=== PATIENT | female | born 1975 | race Caucasian/White ===

== ENCOUNTER → 2018-06-07 | Outpatient (CLI) | payer MEDICARE, OTHER | END | disposition home or self-care (01) | LOC: RADECHMAIN 11:50 | PROVIDERS: ATTEND Psychiatry & Neurology Neurology | DX: I49.1 Atrial premature depolarization (principal); I49.3 Ventricular premature depolarization; R00.0 Tachycardia, unspecified | CPT/HCPCS: 93270; 93271 ==

== ENCOUNTER 2019-05-10 17:55 | Observation (INO) | payer MEDICARE ==
--- NOTE | 2019-05-10 18:06 | ED ---
Abdominal Pain HPI - General Chief Complaint: Abdominal Pain Stated Complaint: Blood transfusion Time Seen by Provider: 05/10/19 18:03 Source: patient, RN notes reviewed, old records reviewed Mode of arrival: wheelchair Limitations: no limitations - History of Present Illness Initial Comments: This is a 43-year-old female presenting today for evaluation of abnormal outpatient lab test. Patient states she has not been feeling Well lately but denying adequate bleeding from anywhere no heavy periods no blood in her stool no vomiting of blood. Eating and drinking appropriately she has a little bit of weight loss lately. With intentional weight loss MD Complaint: other (Weakness with low hemoglobin) -: unknown Radiation: none Severity scale (1-10): 0 Consistency: constant Improves With: nothing Worsens With: nothing Associated Symptoms: other - Related Data Home Medications Medication Instructions Recorded Confirmed Gabapentin [Neurontin] 3,200 mg PO HS 07/31/16 05/10/19 Ibuprofen [Motrin] 800 mg PO HS PRN 07/31/16 05/10/19 OXcarbazepine [Trileptal] 600 mg PO HS 07/31/16 05/10/19 QUEtiapine FUMARATE 100 mg PO HS 07/31/16 05/10/19 Topiramate [Topamax] 100 mg PO HS 05/10/19 05/10/19 Venlafaxine HCl [Effexor] 150 mg PO HS 05/10/19 05/10/19 Allergies Allergy/AdvReac Type Severity Reaction Status Date / Time latex Allergy Unknown Rash/Hives Verified 05/10/19 18:28 Sulfa (Sulfonamide Allergy Unknown Unknown Verified 05/10/19 18:28 Antibiotics) Review of Systems ROS Statement: Those systems with pertinent positive or pertinent negative responses have been documented in the HPI. ROS Other: All systems not noted in ROS Statement are negative. Past Medical History Past Medical History: Seizure Disorder Additional Past Medical History / Comment(s): STATES SEIZURES HARD TO DETECT-SHE STARES. , HX OF FACIAL INJURIES FROM H[place]CHE[place]., ANEMIA. History of Any Multi-Drug Resistant Organisms: None Reported Past Surgical History: Appendectomy, Section, Cholecystectomy Additional Past Surgical History / Comment(s): FACIAL SURGERIES. Past Anesthesia/Blood Transfusion Reactions: No Reported Reaction, Motion Sickn ess Past Psychological History: Depression Smoking Status: Never smoker Past Alcohol Use History: None Reported Past Drug Use History: None Reported - Past Family History Mother Family Medical History: No Reported History General Exam Limitations: no limitations General appearance: alert, in no apparent distress Head exam: Present: atraumatic, normocephalic, normal inspection Eye exam: Present: normal appearance, PERRL, EOMI. Absent: scleral icterus, conjunctival injection, periorbital swelling ENT exam: Present: normal exam, mucous membranes moist Neck exam: Present: normal inspection. Absent: tenderness, meningismus, lymphadenopathy Respiratory exam: Present: normal lung sounds bilaterally. Absent: respiratory distress, wheezes, rales, rhonchi, stridor Cardiovascular Exam: Present: regular rate, normal rhythm, normal heart sounds. Absent: systolic murmur, diastolic murmur, rubs, gallop, clicks GI/Abdominal exam: Present: soft, normal bowel sounds. Absent: distended, tenderness, guarding, rebound, rigid Extremities exam: Present: normal inspection, full ROM, normal capillary refill. Absent: tenderness, pedal edema, joint swelling, calf tenderness Back exam: Present: normal inspection Neurological exam: Present: alert, oriented X3, CN II-XII intact Psychiatric exam: Present: normal affect, normal mood Skin exam: Present: warm, dry, intact, normal color. Absent: rash Course Vital Signs 05/10/19 05/10/19 17:56 19:37 Temperature 97.9 F Pulse Rate 89 70 Respiratory 20 18 Rate Blood Pressure 135/64 120/68 O2 Sat by Pulse 100 100 Oximetry - Reevaluation(s) Reevaluation #1: 05/10/19 19:09 Medical records reviewed - Consultations Consultation #1: spoke.w Dr. Vizcaino is a ok for admission Medical Decision Making - Medical Decision Making 43 female here to ER symptomatically anemia significant short of breath and near syncopal event special fibrillation. We'll admit for continued monitoring of anemia, to look like chronic anemia from iron deficiency as well as her lab test but symptoms are more acute - Lab Data Result diagrams: 05/10/19 18:34 05/10/19 18:34 Lab Results 05/10/19 05/10/19 05/10/19 Range/Units 18:34 18:34 18:34 WBC 4.9 (3.8-10.6) k/uL RBC 4.46 (3.80-5.40) m/uL Hgb 7.0 L (11.4-16.0) gm/dL Hct 26.1 L (34.0-46.0) % MCV 58.4 L (80.0-100.0) fL MCH 15.8 L (25.0-35.0) pg MCHC 27.0 L (31.0-37.0) g/dL RDW 18.6 H (11.5-15.5) % Plt Count 389 (150-450) k/uL Neutrophils % 68 % Lymphocytes % 25 % Monocytes % 5 % Eosinophils % 0 % Basophils % 0 % Neutrophils # 3.3 (1.3-7.7) k/uL Lymphocytes # 1.2 (1.0-4.8) k/uL Monocytes # 0.3 (0-1.0) k/uL Eosinophils # 0.0 (0-0.7) k/uL Basophils # 0.0 (0-0.2) k/uL Hypochromasia Marked Poikilocytosis Moderate Anisocytosis Slight Microcytosis Marked PT 9.8 (9.0-12.0) sec INR 0.9 (<1.2) APTT 25.9 (22.0-30.0) sec Sodium 141 (137-145) mmol/L Potassium 4.3 (3.5-5.1) mmol/L Chloride 108 H (98-107) mmol/L Carbon Dioxide 23 (22-30) mmol/L Anion Gap 10 mmol/L BUN 9 (7-17) mg/dL Creatinine 0.53 (0.52-1.04) mg/dL Est GFR (CKD-EPI)AfAm >90 (>60 ml/min/1.73 sqM) Est GFR (CKD-EPI)NonAf >90 (>60 ml/min/1.73 sqM) Glucose 111 H (74-99) mg/dL Calcium 9.5 (8.4-10.2) mg/dL Magnesium 2.1 (1.6-2.3) mg/dL Total Bilirubin 0.6 (0.2-1.3) mg/dL AST 27 (14-36) U/L ALT 20 (9-52) U/L Alkaline Phosphatase 193 H (38-126) U/L Creatine Kinase 28 L (30-135) U/L Troponin I (0.000-0.034) ng/mL Total Protein 7.8 (6.3-8.2) g/dL Albumin 4.7 (3.5-5.0) g/dL Lipase 66 (23-300) U/L Blood Type Blood Type Recheck Bld Type Recheck Status Antibody Screen Spec Expiration Date 05/10/19 05/10/19 Range/Units 18:34 18:34 WBC (3.8-10.6) k/uL RBC (3.80-5.40) m/uL Hgb (11.4-16.0) gm/dL Hct (34.0-46.0) % MCV (80.0-100.0) fL MCH (25.0-35.0) pg MCHC (31.0-37.0) g/dL RDW (11.5-15.5) % Plt Count (150-450) k/uL Neutrophils % % Lymphocytes % % Monocytes % % Eosinophils % % Basophils % % Neutrophils # (1.3-7.7) k/uL Lymphocytes # (1.0-4.8) k/uL Monocytes # (0-1.0) k/uL Eosinophils # (0-0.7) k/uL Basophils # (0-0.2) k/uL Hypochromasia Poikilocytosis Anisocytosis Microcytosis PT (9.0-12.0) sec INR (<1.2) APTT (22.0-30.0) sec Sodium (137-145) mmol/L Potassium (3.5-5.1) mmol/L Chloride (98-107) mmol/L Carbon Dioxide (22-30) mmol/L Anion Gap mmol/L BUN (7-17) mg/dL Creatinine (0.52-1.04) mg/dL Est GFR (CKD-EPI)AfAm (>60 ml/min/1.73 sqM) Est GFR (CKD-EPI)NonAf (>60 ml/min/1.73 sqM) Glucose (74-99) mg/dL Calcium (8.4-10.2) mg/dL Magnesium (1.6-2.3) mg/dL Total Bilirubin (0.2-1.3) mg/dL AST (14-36) U/L ALT (9-52) U/L Alkaline Phosphatase (38-126) U/L Creatine Kinase (30-135) U/L Troponin I <0.012 (0.000-0.034) ng/mL Total Protein (6.3-8.2) g/dL Albumin (3.5-5.0) g/dL Lipase (23-300) U/L Blood Type B Positive Blood Type Recheck B Pos Bld Type Recheck Status No Antibody Screen NEGATIVE Spec Expiration Date 05/13/2019 - 2334 Disposition Clinical Impression: Anemia Disposition: ADMITTED IP TO THIS HOSP Condition: Good Is patient prescribed a controlled substance at d/c from ED?: No Referrals: Silvio Chong MD [Primary Care Provider] - 1-2 days
[2019-05-10] MEDS ORDERED: ONDANSETRON 4 MG/2 ML VIAL IVP STA (18:20)
[2019-05-10] MEDS ORDERED: SODIUM CHLORIDE 0.9% 1,000 ML IV STA (18:20)
[2019-05-10] MEDS ORDERED: PANTOPRAZOLE 40 MG/10 ML VIAL IVP STA (18:20)
[2019-05-10 18:44] LABS: Anisocytosis Slight; Basophils % (A) 0 %; Eosinophils % (A) 0 %; HCT 26.1 % (34.0-46.0); Hypochromasia Marked; Lymphocytes # (A) 1.2 k/uL (1.0-4.8); Lymphocytes % (A) 25 %; MCH 15.8 pg (25.0-35.0); MCV 58.4 fL (80.0-100.0); Mean Platelet Volume 7.6; Microcytosis Marked; Monocytes # (A) 0.3 k/uL (0-1.0); Monocytes % (A) 5 %; Neutrophils # (A) 3.3 k/uL (1.3-7.7); Neutrophils % (A) 68 %; Platelet Count 389 k/uL (150-450); Poikilocytosis Moderate; RBC 4.46 m/uL (3.80-5.40); RDW 18.6 % (11.5-15.5); WBC 4.9 k/uL (3.8-10.6)
[2019-05-10 18:52] LABS: ALT 20 U/L (9-52); AST 27 U/L (14-36); African American GFR (CKD) >90 (>60 ml/min/1.73 sqM); Albumin 4.7 g/dL (3.5-5.0); Alkaline Phosphatase 193 U/L (38-126); Anion Gap 10 mmol/L; Blood Urea Nitrogen 9 mg/dL (7-17); Calcium 9.5 mg/dL (8.4-10.2); Carbon Dioxide 23 mmol/L (22-30); Chloride 108 mmol/L (98-107); Creatine Kinase 28 U/L (30-135); Glucose 111 mg/dL (74-99); Magnesium 2.1 mg/dL (1.6-2.3); Non-African American GFR(CKD) >90 (>60 ml/min/1.73 sqM); Potassium 4.3 mmol/L (3.5-5.1); Sodium 141 mmol/L (137-145); Total Bilirubin 0.6 mg/dL (0.2-1.3); Total Protein 7.8 g/dL (6.3-8.2)
[2019-05-10 18:56] LABS: INR 0.9 (<1.2); Partial Thromboplastin Time 25.9 sec (22.0-30.0); Prothrombin Time 9.8 sec (9.0-12.0)
[2019-05-11 02:22] VITALS: BMI 33.0
[2019-05-11 02:52] LABS: % Iron Saturation 2.28 (12.00-45.00); Ferritin 8.4 ng/mL (10.0-291.0)
[2019-05-11 12:06] LABS: Reticulocyte % 2.2 % (0.5-2.0)
--- NOTE | 2019-05-11 12:32 | P.HPIM ---
History of Present Illness H&P Date: 05/11/19 Chief Complaint: anemia This is a 43-year-old female patient of Dr. 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 Patient also follows with Dr. Cavazos on a regular basis and receives cortisone shots. Dr. Cavazos apparently did lab work that found anemia and patient was sent into [facility] emergency [place] for evaluation. She does state that she has had some shortness of breath and fatigue and also feel palpitations when she ambulates. She denies any dizziness or lightheadedness. She does complain of ice cravings. She denies any ancestry and no family history of anemia. Regarding menses, patient states that she normally has 3-4 day. That's irregular and without excessive bleeding Patient had a colonoscopy with Dr. Smith Jul 2016 that found internal hemorrhoids external skin tags. She also underwent EGD with Dr. Brothers that revealed mild gastritis. Pathology report found no malignancy and only chronic mild esophagitis. Patient states that she has been on iron tablets ordered by Dr. Chu that did not improve her anemia. This summer she did have a n iron transfusion done at [facility] which did make her feel better. Regarding Motrin, she states she only takes it very rarely. She denies having any abdominal pain, noticeable blood in her stools or tarry stools. Patient came into [facility] emergency center for evaluation. Hemoglobin 7.0, MCV 58.4, platelet count 389, rechecked count 2.2, which was within normal limits, blood sugar 111, BUN 90 creatinine 0.53. Magnesium 2.1. TIBC 439, iron saturation 2.28, ferritin 8.4, alkaline phosphatase 193, lipase 66. Patient was admitted to the [facility] floor and consult with GI. Patient has been seen by GI with plan for upper and lower endoscopy for tomorrow afternoon. Review of Systems Constitutional: Reports fatigue, Reports weakness, Denies chills, Denies fever, Denies poor appetite, Denies weight loss Eyes: denies blurred vision, denies pain Ears, nose, mouth and throat: Denies dysphagia, Denies nasal congestion, Denies nasal discharge, Denies vertigo Cardiovascular: Reports dyspnea on exertion, Reports palpitations, Denies chest pain, Denies shortness of breath, Denies syncope Respiratory: Denies congestion, Denies cough, Denies cough with sputum, Denies dyspnea, Denies excessive sputum, Denies hemoptysis, Denies home oxygen, Denies wheezing Gastrointestinal: Denies abdominal pain, Denies diarrhea, Denies hematochezia, Denies loss of appetite, Denies melena, Denies nausea, Denies vomiting Genitourinary: Denies dysuria, Denies hematuria Menstruation: Reports menses 1-7 days, Reports period light, Denies amenorrhea Musculoskeletal: Denies frequent falls, Denies gait dysfunction, Denies muscle weakness, Denies myalgias Integumentary: Denies pruritus, Denies rash Neurological: Denies numbness, Denies weakness Psychiatric: Denies anxiety, Denies depression Endocrine: Denies fatigue, Denies weight change Past Medical History Past Medical History: Seizure Disorder Additional Past Medical History / Comment(s): STATES SEIZURES HARD TO DETECT-SHE STARES. , HX OF FACIAL INJURIES FROM [place]., ANEMIA. History of Any Multi-Drug Resistant Organisms: None Reported Past Surgical History: Appendectomy, Section, Cholecystectomy Additional Past Surgical History / Comment(s): FACIAL SURGERIES. Past Anesthesia/Blood Transfusion Reactions: No Reported Reaction, Motion Sickness Past Psychological History: Anxiety, Depression Smoking Status: Never smoker Past Alcohol Use History: None Reported Additional Past Alcohol Use History / Comment(s): Patient is a lifelong nonsmoker, no illicit drug use, she has occasionally drink alcohol in the past but none at the past 9 years since closed head injury. Past Drug Use History: None Reported - Past Family History Mother Family Medical History: No Reported History Additional Family Medical History / Comment(s): Mother is alive at age 67 with no major medical problems. Father Additional Family Medical History / Comment(s): Father is alive at age 67 with no major medical problems. Brother(s) Additional Family Medical History / Comment(s): Patient has 1 brother and 1 sister with no major medical problems. Patient has 2 sons and 2 daughters with no major medical problems. Medications and Allergies Home Medications Medication Instructions Recorded Confirmed Type Gabapentin [Neurontin] 3,200 mg PO HS 07/31/16 05/11/19 History Ibuprofen [Motrin] 800 mg PO HS PRN 07/31/16 05/11/19 History QUEtiapine FUMARATE 100 mg PO HS 07/31/16 05/11/19 History Topiramate [Topamax] 100 mg PO HS 05/10/19 05/11/19 History OXcarbazepine [Trileptal] 300 mg PO HS 05/11/19 05/11/19 History Venlafaxine HCl [Effexor XR] 150 mg PO HS 05/11/19 05/11/19 History Allergies Allergy/AdvReac Type Severity Reaction Status Date / Time latex Allergy Unknown Rash/Hives Verified 05/10/19 18:28 Sulfa (Sulfonamide Allergy Unknown Unknown Verified 05/10/19 18:28 Antibiotics) Physical Exam Vitals: Vital Signs Temp Pulse Pulse Resp BP BP Pulse Ox 05/11/19 08:38 16 05/11/19 07:56 98.3 F 68 16 100/61 98 05/11/19 04:50 98.7 F 69 16 97/60 97 05/11/19 00:00 18 05/10/19 21:47 98.1 F 84 18 133/88 100 05/10/19 20:56 98.5 F 71 16 118/77 98 05/10/19 19:37 70 18 120/68 100 05/10/19 17:56 97.9 F 89 20 135/64 100 Intake and Output 05/10/19 05/11/19 05/11/19 22:59 06:59 14:59 Intake Total 1120 1040 Balance 1120 1040 Intake: Intake, IV Titration 400 800 Amount Sodium Chloride 0.9% 1, 400 800 000 ml @ 100 mls/hr IV . Q10H STA Rx#:[id number] Oral 720 240 Other: Voiding Method Toilet # Voids 1 1 Weight 101.605 kg Gen: This is an obese 43-year-old female. Patient is resting in bed and appears to be comfortable and in no acute distress. HEENT: Head is atraumatic, normocephalic. Pupils equal, round. Sclerae is anicteric. NECK: Supple. No JVD. No lymphadenopathy. No thyromegaly. LUNGS: Clear to auscultation. No wheezes or rhonchi. No intercostal retractions. HEART: Regular rate and rhythm. No murmur. ABDOMEN: Soft. Bowel sounds are present. No masses. No tenderness. EXTREMITIES: No pedal edema. No calf tenderness. Dorsalis pedis +2 bilaterally. NEUROLOGICAL: Patient is awake, alert and oriented x3. Cranial nerves 2 through 12 are grossly intact. Results CBC & Chem 7: 05/10/19 18:34 05/10/19 18:34 Labs: Abnormal Lab Results - Last 24 Hours (Table) 05/10/19 05/10/19 05/10/19 Range/Units 18:34 18:34 18:34 Hgb 7.0 L (11.4-16.0) gm/dL Hct 26.1 L (34.0-46.0) % MCV 58.4 L (80.0-100.0) fL MCH 15.8 L (25.0-35.0) pg MCHC 27.0 L (31.0-37.0) g/dL RDW 18.6 H (11.5-15.5) % Chloride 108 H (98-107) mmol/L Glucose 111 H (74-99) mg/dL Iron 10 L (50-170) ug/dL % Saturation 2.28 L (12.00-45.00) Ferritin 8.4 L (10.0-291.0) ng/mL Alkaline Phosphatase 193 H (38-126) U/L Creatine Kinase 28 L (30-135) U/L Thrombosis Risk Factor Assmnt - DVT/VTE Prophylaxis DVT/VTE Prophylaxis: Mechanical Prophylaxis ordered - Choose All That Apply Any of the Below Risk Factors Present?: Yes Each Factor Represents 1 point: Age 41-60 years Other Risk Factors: No Other congenital or acquired thrombophilia - If yes, enter type in comment: No Thrombosis Risk Factor Assessment Total Risk Factor Score: 1 Thrombosis Risk Factor Assessment Level: Low Risk Assessment and Plan Plan: 1. Anemia, iron deficiency, chronic. GI consult appreciated. Patient is s cheduled for EGD and colonoscopy tomorrow afternoon. 2. History of closed head injury and intracranial bleed, stable. 3. 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 Continue Trileptal 300 mg at bedtime, gabapentin 3200 mg at bedtime. 4. Trigeminal neuralgia. Continue Topamax 100 mg at bedtime. 5. Recurrent depression. Continue Seroquel 100 mg at bedtime, Effexor 150 mg at bedtime and gabapentin. 6. GI prophylaxis. Protonix. 7. DVT prophylaxis. SCDs and COREY hose. Patient will be admitted to the hospital for a minimum of 2 night stay. Discharge plan: Return home Impression and plan of care have been directed as dictated by the signing physician. Jesika Devlin nurse practitioner acting as scribe for signing physician.
[2019-05-11] MEDS ORDERED: PEG 3350-NA SULF,BICARB,CL/KCL 4,000 ML BOTTLE PO ONE (19:00)
--- NOTE | 2019-05-11 19:33 | CONS ---
CONSULTATION DATE OF DICTATION: 05/11/2019 REASON FOR CONSULTATION: Iron deficiency anemia. HISTORY OF PRESENT ILLNESS: The patient is a 43-year-old pleasant white female who was admitted to the hospital with severe symptomatic anemia and a hemoglobin of 7 g/dL. The patient has history of a closed-head injury about 8 years ago and follows with Dr. Cavazos. She went to see him yesterday and she was not looking good. She was advised to have outpatient labs. Hemoglobin was noted to be 7 and she was advised to go to the emergency room and subsequently was admitted to the hospital for further evaluation. The patient denies any active GI bleed. She has been taking Motrin regularly for chronic headaches for the last few months. The patient states that she was diagnosed with anemia about 2 years ago and she underwent an upper endoscopy by Dr. Brothers that showed some gastritis and a colonoscopy by Dr. Vivienne Smith and was noted to have small internal hemorrhoids in July of 2016. She denies any abdominal pain. No nausea, vomiting. No rectal bleeding or melena. PAST MEDICAL HISTORY: Her past medical history is significant for closed-head injury, seizure disorder. PAST SURGICAL HISTORY: 1. Appendectomy. 2. . 3. Cholecystectomy. MEDICATIONS AT HOME: 1. Neurontin. 2. Motrin. 3. Topamax. 4. Trileptal. 5. Effexor. ALLERGIES: 1. SULFA. 2. LATEX. SOCIAL HISTORY: No smoking. No alcohol use. FAMILY HISTORY: Father has no medical problems. Mother no medical problems. Brother and sister are healthy. REVIEW OF SYSTEMS: CARDIOPULMONARY: No chest pain or shortness of breath. GENITOURINARY: No dysuria or hematuria. MUSCULOSKELETAL: Unremarkable. SKIN: Unremarkable. ENDOCRINE: Unremarkable. PSYCHIATRIC: Unremarkable. NEUROLOGY: Unremarkable. ENT/VISION: Unremarkable. CONSTITUTIONAL: No recent weight loss. No fever, chills, night sweats. PHYSICAL EXAMINATION: Blood pressure is 97/60, pulse rate 69, temperature 98.7. HEENT examination unremarkable. Conjunctivae pink. Sclerae anicteric. Oral cavity no lesions. NECK: No JVD or lymph node enlargement. CHEST: Clear to auscultation. HEART: Regular rate and rhythm. ABDOMEN: Soft. Bowel sounds are positive. No organomegaly. EXTREMITIES: No pedal edema. SKIN: No rashes. NEUROLOGIC: Alert and oriented x3. No focal deficits. LABS: Labs done at the time of admission to the hospital showed WBC 4.9, hemoglobin 7, platelets 389. PT and INR within normal limits. Iron 10, TIBC 439. Iron saturation 2.28, ferritin 8.4. INR is normal. IMPRESSION: Severe microcytic hyperchromic anemia with iron deficiency, most likely related to occult gastrointestinal blood loss. Patient denies any GI symptoms. She has been taking Motrin on and off for the last few months. She denies any heavy menstrual cycles. She did have an EGD, colonoscopy in July of 2016 that was unremarkable. RECOMMENDATIONS: I had a lengthy discussion with the patient regarding workup of iron deficiency anemia. Since she has severe anemia, I recommended we will proceed with an EGD and colonoscopy tomorrow and if it is negative, will consider a small bowel capsule endoscopy, as she has recurrent iron deficiency anemia. In the meantime, will follow CBC on a daily basis. She was advised to avoid NSAIDs. Further recommendations will follow based on the endoscopy results tomorrow. Thank you for this consultation. MMODL / KIMBERN: [id number] /
[2019-05-11] MEDS: VENLAFAXINE HCL ER 150 MG CAP PO SCH (20:25)
[2019-05-11] MEDS: TOPAMAX PO SCH (20:25)
[2019-05-11] MEDS: OXcarbazepine 300 MG TAB PO SCH (20:25)
[2019-05-11] MEDS: QUEtiapine 100 MG TAB PO SCH (20:25)
[2019-05-11] MEDS: GABAPENTIN 400 MG CAP PO SCH (20:26)
[2019-05-12 07:50] LABS: Anisocytosis Slight; HCT 22.7 % (34.0-46.0); Hypochromasia Marked; MCH 16.2 pg (25.0-35.0); MCHC 26.8 g/dL (31.0-37.0); MCV 60.5 fL (80.0-100.0); Mean Platelet Volume 6.4; Microcytosis Marked; Platelet Count 345 k/uL (150-450); Poikilocytosis Slight; RBC 3.76 m/uL (3.80-5.40); RDW 18.9 % (11.5-15.5); WBC 4.2 k/uL (3.8-10.6)
[2019-05-12 07:52] LABS: HGB 6.1 gm/dL (11.4-16.0)
[2019-05-12] MEDS ORDERED: FUROSEMIDE 10 MG/ML 2 ML VIAL IV PRN (08:09)
[2019-05-12] MEDS ORDERED: PANTOPRAZOLE 40 MG/10 ML VIAL IVP SCH (09:00)
[2019-05-12 13:22] LABS: Albumin 3.53 g/dL (3.80-4.90); Gamma Globulin 0.68 g/dL (0.70-1.50)
--- NOTE | 2019-05-12 13:49 | P.PN ---
Subjective Progress Note Date: 05/12/19 This is a 43-year-old female patient of Dr. 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 Patient also follows with Dr. Cavazos on a regular basis and receives cortisone shots. Dr. Cavazos apparently did lab work that found anemia and patient was sent into [facility] emergency center for evaluation. She does state that she has had some shortness of breath and fatigue and also feel palpitations when she ambulates. She denies any dizziness or lightheadedness. She does complain of ice cravings. She denies any ancestry and no family history of anemia. Regarding menses, patient states that she normally has 3-4 day. That's irregular and without excessive bleeding Patient had a colonoscopy with Dr. Smith Jul 2016 that found internal hemorrhoids external skin tags. She also underwent EGD with Dr. Brothers that revealed mild gastritis. Pathology report found no malignancy and only chronic mild esophagitis. Patient states that she has been on iron tablets ordered by Dr. Chu that did not improve her anemia. This summer she did have an iron transfusion done at [facility] which did make her feel better. Regarding Motrin, she states she only takes it very rarely. She denies having any abdominal pain, noticeable blood in her stools or tarry stools. Patient came into [facility] emergency center for evaluation. Hemoglobin 7.0, MCV 58.4, platelet count 389, rechecked count 2.2, which was within normal limits, blood sugar 111, BUN 90 creatinine 0.53. Magnesium 2.1. TIBC 439, iron saturation 2.28, ferritin 8.4, alkaline phosphatase 193, lipase 66. [facility]. Patient has been seen by GI with plan for upper and lower endoscopy for tomorrow afternoon. 05/12: Patient had a drop in hemoglobin to 6.1 and is ordered for 1 unit packed RBC transfusion today, followed by Lasix 20 mg IV. Patient continues to deny any abdominal pain. No nausea or vomiting. She is undergoing prep for colonoscopy and as of yet has not had a bowel movement. She is scheduled for soapsuds enema prior to procedures. Patient also denies any lightheadedness or dizziness. She has walked in the hallway around the large [place] and does feel her heart pounding. Patient has been afebrile, heart rate 69, blood pressure 121/66, pulse ox 100% on room air. Review of Systems Constitutional: Reports fatigue, Reports weakness, Denies chills, Denies fever, Denies poor appetite, Denies weight loss Ears, nose, mouth and throat: Denies dysphagia, Denies nasal congestion, Denies nasal discharge, Denies vertigo Cardiovascular: Reports dyspnea on exertion, Reports palpitations, Denies chest pain, Denies shortness of breath, Denies syncope Respiratory: Denies congestion, Denies cough, Denies cough with sputum, Denies dyspnea, Denies excessive sputum, Denies hemoptysis, Denies home oxygen, Denies wheezing Gastrointestinal: Denies abdominal pain, Denies diarrhea, Denies hematochezia, Denies loss of appetite, Denies melena, Denies nausea, Denies vomiting Genitourinary: Denies dysuria, Denies hematuria Menstruation: Reports menses 1-7 days, Reports period light, Denies amenorrhea Musculoskeletal: Denies frequent falls, Denies gait dysfunction, Denies muscle weakness, Denies myalgias Integumentary: Denies pruritus, Denies rash Neurological: Denies numbness, Denies weakness Psychiatric: Denies anxiety, Denies depression Endocrine: Denies fatigue, Denies weight change Objective - Vital Signs Vital signs: Vital Signs Temp 98.1 F 05/12/19 12:32 Pulse 69 05/12/19 12:32 Resp 16 05/12/19 12:32 BP 121/66 05/12/19 12:32 Pulse Ox 100 05/12/19 12:32 Intake & Output 05/11/19 05/12/19 05/12/19 18:59 06:59 18:59 Intake Total 1300 3760 0 Balance 1300 3760 0 Intake: Intake, IV Titration 800 400 Amount Sodium Chloride 0.9% 1, 800 400 000 ml @ 100 mls/hr IV . Q10H STA Rx#:[id number] Oral 500 3360 Blood Product 0 Rc As-1 Unit 0 [id number] Other: Voiding Method Toilet Toilet Toilet # Voids 2 3 # Bowel Movements 0 - Exam Gen: This is an obese 43-year-old female. Patient is resting in bed and appears to be comfortable and in no acute distress. Mother is at bedside. HEENT: Head is atraumatic, normocephalic. Pupils equal, round. Sclerae is anicteric. NECK: Supple. No JVD. No lymphadenopathy. No thyromegaly. LUNGS: Clear to auscultation. No wheezes or rhonchi. No intercostal retractions. HEART: Regular rate and rhythm. No murmur. ABDOMEN: Soft with mild abdominal distention. Bowel sounds are present. No masses. No tenderness. EXTREMITIES: No pedal edema. No calf tenderness. Dorsalis pedis +2 bilaterally. NEUROLOGICAL: Patient is awake, alert and oriented x3. Cranial nerves 2 through 12 are grossly intact. - Labs CBC & Chem 7: 05/12/19 07:02 05/10/19 18:34 Labs: Abnormal Lab Results - Last 24 Hours (Table) 05/10/19 05/11/19 05/12/19 Range/Units 18:34 11:20 07:02 RBC 3.76 L (3.80-5.40) m/uL Hgb 6.1 L* (11.4-16.0) gm/dL Hct 22.7 L (34.0-46.0) % MCV 60.5 L (80.0-100.0) fL MCH 16.2 L (25.0-35.0) pg MCHC 26.8 L (31.0-37.0) g/dL RDW 18.9 H (11.5-15.5) % Total Protein (PEP) 6.0 L (6.2-8.2) g/dL Albumin (PEP) 3.53 L (3.80-4.90) g/dL Gamma Globulins 0.68 L (0.70-1.50) g/dL Crossmatch See Detail Assessment and Plan Plan: 1. Anemia, iron deficiency, acute on chronic blood loss. GI consult appreciated. Patient is scheduled for EGD and colonoscopy this afternoon. Transfuse 1 unit of packed RBCs. CBC every 8 hours 1 day. 2. History of closed head injury and intracranial bleed, stable. 3. 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 Continue Trileptal 300 mg at bedtime, gabapentin 3200 mg at bedtime. 4. Trigeminal neuralgia. Continue Topamax 100 mg at bedtime. 5. Recurrent depression. Continue Seroquel 100 mg at bedtime, Effexor 150 mg at bedtime and gabapentin. 6. GI prophylaxis. Protonix. 7. DVT prophylaxis. SCDs and COREY suero. Discharge plan: Return home Impression and plan of care have been directed as dictated by the signing physician. Jesika Devlin nurse practitioner acting as scribe for signing physician.
[2019-05-12] MEDS ORDERED: MAGNESIUM CITRATE 296 ML BOTTLE PO ONE (17:00)
[2019-05-12 18:55] LABS: Anisocytosis Moderate; HCT 26.8 % (34.0-46.0); Hypochromasia Marked; MCH 17.7 pg (25.0-35.0); MCHC 28.4 g/dL (31.0-37.0); MCV 62.4 fL (80.0-100.0); Mean Platelet Volume 6.8; Microcytosis Marked; Platelet Count 319 k/uL (150-450); Poikilocytosis Marked; RDW 21.1 % (11.5-15.5)
[2019-05-12 19:05] LABS: HGB 7.6 gm/dL (11.4-16.0)
--- NOTE | 2019-05-12 19:55 | PN ---
PROGRESS NOTE DATE OF DICTATION: 05/12/2019 Patient is a 43-year-old pleasant white female admitted to the hospital with severe symptomatic anemia and hemoglobin of 6.7, requiring blood transfusion. She denies any GI symptoms. She was scheduled for an EGD and colonoscopy today. However, her prep was incomplete and hence the procedure was canceled. She denies any new symptoms. PHYSICAL EXAMINATION: She appears comfortable. No apparent distress. VITAL SIGNS: Stable. Blood pressure 115/64, pulse rate 85, temperature 98. HEENT examination unremarkable. Conjunctivae pink. Sclerae anicteric. Oral cavity no lesions. NECK: No JVD or lymph node enlargement. CHEST: Clear to auscultation. HEART: Regular rate and rhythm. ABDOMEN: Soft. Bowel sounds are positive. No organomegaly. EXTREMITIES: No pedal edema. SKIN: No rashes. NEUROLOGIC: Alert and oriented x3. No focal deficits. LABS: WBC 4.2, hemoglobin 6.1, platelets 345. IMPRESSION: Severe iron deficiency anemia with a hemoglobin of 6.1 requiring one unit of blood transfusion. She is undergoing prep for EGD and colonoscopy tomorrow. RECOMMENDATIONS: Proceed with EGD and colonoscopy tomorrow. Will give her a bottle of mag citrate today. Keep her on a clear liquid diet and keep her n.p.o. after midnight. Thank you for this consultation. MMSHANEKAL / KIMBERN: [id number] /
[2019-05-12] MEDS: GABAPENTIN 400 MG CAP PO SCH (21:13)
[2019-05-12] MEDS: PANTOPRAZOLE 40 MG/10 ML VIAL IVP SCH (21:13)
[2019-05-12] MEDS: VENLAFAXINE HCL ER 150 MG CAP PO SCH (21:14)
[2019-05-12] MEDS: QUEtiapine 100 MG TAB PO SCH (21:14)
[2019-05-12] MEDS: OXcarbazepine 300 MG TAB PO SCH (21:15)
[2019-05-12] MEDS: TOPAMAX PO SCH (21:15)
[2019-05-12] MEDS ORDERED: ONDANSETRON 4 MG/2 ML VIAL IVP PRN (23:04)
[2019-05-13 03:50] LABS: Anisocytosis Moderate; HCT 25.4 % (34.0-46.0); HGB 7.2 gm/dL (11.4-16.0); Hypochromasia Marked; MCH 17.1 pg (25.0-35.0); MCHC 28.5 g/dL (31.0-37.0); Mean Platelet Volume 6.8; Microcytosis Marked; Platelet Count 358 k/uL (150-450); Poikilocytosis Marked; RBC 4.24 m/uL (3.80-5.40); RDW 21.5 % (11.5-15.5); WBC 5.1 k/uL (3.8-10.6)
[2019-05-13 03:59] LABS: ALT 22 U/L (9-52); AST 36 U/L (14-36); African American GFR (CKD) >90 (>60 ml/min/1.73 sqM); Albumin 4.3 g/dL (3.5-5.0); Alkaline Phosphatase 213 U/L (38-126); Anion Gap 10 mmol/L; Blood Urea Nitrogen 6 mg/dL (7-17); Calcium 9.2 mg/dL (8.4-10.2); Carbon Dioxide 22 mmol/L (22-30); Chloride 107 mmol/L (98-107); Glucose 95 mg/dL (74-99); Non-African American GFR(CKD) >90 (>60 ml/min/1.73 sqM); Potassium 3.7 mmol/L (3.5-5.1); Sodium 139 mmol/L (137-145); Total Bilirubin 1.4 mg/dL (0.2-1.3); Total Protein 7.3 g/dL (6.3-8.2)
[2019-05-13] MEDS ORDERED: IV FLUID CONTINUATION 300 ML IV ONE (07:13)
[2019-05-13] MEDS ORDERED: PROPOFOL 10 MG/ML 20 ML VIAL IV ONE (07:14)
[2019-05-13] MEDS ORDERED: LIDOCAINE 1% INJ 10MG/ML (20 ML MDV) ONE (07:14)
--- NOTE | 2019-05-13 07:35 | P.PCN ---
Date of Procedure: 05/13/19 Procedure(s) Performed: Brief history: Patient is a pleasant 43-year-old white female, admitted hospital with a hemoglobin of 6.1 g per as well as Desitin requiring 1 unit of blood transfusion. Iron indices consistent with iron deficiency anemia. He is hence scheduled for an upper endoscopy as well as colonoscopy as a part of evaluation of severe iron deficiency anemia. Procedure performed: Esophagogastroduodenoscopy with biopsy Colonoscopy Preoperative diagnosis: Severe iron deficiency anemia Anesthesia: MAC Procedure: After informed consent was obtained from the patient was brought into the endoscopy unit and IV sedation was administered by anesthesia under continuous monitoring. Initially upper endoscopy was done. The Olympus GF 160 video endoscope was inserted inserted into the mouth and esophagus intubated without any difficulty and was gradually advanced into the stomach and duodenum and carefully examined. The bulb and second part of the duodenum appeared normal. Abscesses were done from the duodenum to rule out celiac disease. The scope was then withdrawn into the stomach adequately insufflated with air and upon careful examination the antrum had patchy areas of erythema in the prepyloric area and biopsies were done. The body, cardia and fundus appeared normal. The scope was then withdrawn into the esophagus. The GE junction was located at 40 cm to the incisors. small sliding Hiatal hernia noted. It appeared regular with no erythema erosions or ulcerations. Rest of the esophagus appeared normal. Patient tolerated the procedure well. At this time the patient continued to remain sedation. Initial digital rectal examination was normal. Olympus CF 160 video colonoscope was then inserted into the rectum and gradually advanced to the cecum without any difficulty. Careful examination was performed as the scope was gradually being withdrawn. The prep was excellent. The cecum, ascending colon, transverse colon, descending colon, sigmoid colon and rectum appeared normal. Retroflexion was performed in the rectum and small internal hemorrhoids were noted. Patient tolerated the procedure well. Impression: 1. Upper Endoscopy revealed mild antral gastritis and a small sized Hiatal hernia 2. Colonoscopy revealed small internal hemorrhoids but no evidence of colorectal neoplasia Recommendations: Findings of this examination were discussed with the patient as well as her family. She was advised to follow with the biopsy results. She will be started on iron supplements twice daily. She'll be seen in office in 2 weeks from now and will consider a small bowel capsule endoscopy as outpatient basis
[2019-05-13] MEDS ORDERED: FERROUS SULFATE 325 MG TAB PO SCH (07:45)
[2019-05-13 08:13] VITALS: RESP 18
[2019-05-13] MEDS: PANTOPRAZOLE 40 MG/10 ML VIAL IVP SCH (08:27)
[2019-05-13] MEDS ORDERED: SODIUM FERRIC GLUCONAT-SUCROSE 125 MG in SODIUM CHLORIDE 0.9% 100 ML IVPB ONE (12:00)
[2019-05-13 12:23] VITALS: BP 149/83; PULSE 88; TEMP 98.1
--- NOTE | 2019-05-13 12:50 | P.PN ---
Subjective Progress Note Date: 05/13/19 Principal diagnosis: Iron deficiency anemia Patient sitting up in. Patient seen and evaluated. EGD and colonoscopy performed this morning by Dr. Mullen, upper endoscopy revealed mild antral gastritis and a small sized hiatal hernia, no active bleeding. Colonoscopy revealed small internal hemorrhoids but no evidence of colorectal neoplasia, no active bleeding. Patient reports her abdomen is sore from the prep and vomiting yesterday. Patient reports no active rectal bleeding or black stools, no nausea or vomiting. Tolerating regular diet. Patient received 1 unit of packed red blood cells yesterday for hemoglobin of 6.1, today hemoglobin 7.2 hematocrit 25.4 MCV 60.0 platelets 358. Patient to be discharged today after IV iron transfusion to follow-up with her PCP Dr. Chong and scheduled to see hematology on an outpatient basis. Objective - Vital Signs Vital signs: Vital Signs Temp 98.1 F 05/13/19 12:22 Pulse 88 05/13/19 12:22 Resp 18 05/13/19 12:22 BP 149/83 05/13/19 12:22 Pulse Ox 99 05/13/19 12:22 Intake & Output 05/12/19 05/13/19 05/13/19 18:59 06:59 18:59 Intake Total 410 660 300 Output Total 400 Balance 410 260 300 Intake: IV 300 Oral 100 660 Blood Product 310 Rc As-1 Unit 310 [id number] Output: Emesis 400 Other: Voiding Method Toilet Toilet Toilet # Voids 2 5 # Bowel Movements 1 6 - Exam General appearance: The patient is alert, oriented, in no acute distress. HET: Head is normocephalic and atraumatic. Pupils are equal and reactive. Oropharynx is clear without lesions. Neck: Supple without lymphadenopathy. Trachea midline. Heart: S1 S2. Regular rate and rhythm. Lungs: No crackles or wheezes are heard. Abdomen: Soft, mild diffuse tenderness, nondistended with bowel sounds. No peritoneal signs. No palpable organomegaly or masses. Extremities: Normal skin color and turgor. No cyanosis, rash, ulceration, clubbing, or edema. Radial and pedal pulses are 2/4 bilaterally. Neurological: No focal deficits. Strength and sensation are grossly intact. - Labs CBC & Chem 7: 05/13/19 03:27 05/13/19 03:27 Labs: Abnormal Lab Results - Last 24 Hours (Table) 05/10/19 05/11/19 05/12/19 Range/Units 18:34 11:20 18:28 Hgb 7.6 L D (11.4-16.0) gm/dL Hct 26.8 L (34.0-46.0) % MCV 62.4 L (80.0-100.0) fL MCH 17.7 L (25.0-35.0) pg MCHC 28.4 L (31.0-37.0) g/dL RDW 21.1 H (11.5-15.5) % BUN (7-17) mg/dL Total Bilirubin (0.2-1.3) mg/dL Alkaline Phosphatase (38-126) U/L Albumin (PEP) 3.53 L (3.80-4.90) g/dL Gamma Globulins 0.68 L (0.70-1.50) g/dL Crossmatch See Detail 05/13/19 05/13/19 Range/Units 03:27 03:27 Hgb 7.2 L (11.4-16.0) gm/dL Hct 25.4 L (34.0-46.0) % MCV 60.0 L (80.0-100.0) fL MCH 17.1 L (25.0-35.0) pg MCHC 28.5 L (31.0-37.0) g/dL RDW 21.5 H (11.5-15.5) % BUN 6 L (7-17) mg/dL Total Bilirubin 1.4 H (0.2-1.3) mg/dL Alkaline Phosphatase 213 H (38-126) U/L Albumin (PEP) (3.80-4.90) g/dL Gamma Globulins (0.70-1.50) g/dL Crossmatch Assessment and Plan Assessment: Chronic Iron deficiency anemia Plan: Patient to be discharged today after IV iron transfusion. Will go home on oral iron. Patient to follow-up with Dr. Mullen in 2-3 weeks with possible outpatient small bowel capsule endoscopy. Patient follow-up with PCP and hematology in one week. The above dictated assessment and findings were discussed with Dr. Jojo Mullen. The impression and plan of care have been directed as dictated.
--- NOTE | 2019-05-13 14:05 | P.DS ---
Providers Date of admission: 05/10/19 20:34 Expected date of discharge: 05/13/19 Attending physician: Wander Vizcaino Consults: 05/10/19 20:34 Consult Physician Routine Consulting Provider: Tres Eason Consult Reason/Comments: anemai Do you want consulting provider notified?: Yes Primary care physician: Silvio Chong [facility] Course: This is a 43-year-old female patient of Dr. 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 Patient also follows with Dr. Cavazos on a regular basis and receives cortisone shots. Dr. Cavazos apparently did lab work that found anemia and patient was sent into [facility] [place]. She does state that she has had some shortness of breath and fatigue and also feel palpitations when she ambulates. She denies any dizziness or lightheadedness. She does complain of ice cravings. She denies any ancestry and no family history of anemia. Regarding menses, patient states that she normally has 3-4 day. That's irregular and without excessive bleeding Patient had a colonoscopy with Dr. Smith Jul 2016 that found internal hemorrhoids external skin tags. She also underwent EGD with Dr. Brothers that revealed mild gastritis. Pathology report found no malignancy and only chronic mild esophagitis. Patient states that she has been on iron tablets ordered by Dr. Chu that did not improve her anemia. This summer she did have an iron transfusion done at [facility] which did make her feel better. Regarding Motrin, she states she only takes it very rarely. She denies having any abdominal pain, noticeable blood in her stools or tarry stools. Patient came into [facility] emergency center for evaluation. Hemoglobin 7.0, MCV 58.4, platelet count 389, rechecked count 2.2, which was w ithin normal limits, blood sugar 111, BUN 90 creatinine 0.53. Magnesium 2.1. TIBC 439, iron saturation 2.28, ferritin 8.4, alkaline phosphatase 193, lipase 66. Patient was admitted to the [facility] floor and consult with GI. Patient has been seen by GI with plan for upper and lower endoscopy for tomorrow afternoon. 05/12: Patient had a drop in hemoglobin to 6.1 and is ordered for 1 unit packed RBC transfusion today, followed by Lasix 20 mg IV. Patient continues to deny any abdominal pain. No nausea or vomiting. She is undergoing prep for colonoscopy and as of yet has not had a bowel movement. She is scheduled for soapsuds enema prior to procedures. Patient also denies any lightheadedness or dizziness. She has walked in the hallway around the large [place] and does feel her heart pounding. Patient has been afebrile, heart rate 69, blood pressure 121/66, pulse ox 100% on room air. 05/13: Yesterday, patient underwent upper endoscopy that revealed mild antral gastritis and small sized hiatal hernia. Colonoscopy revealed small internal hemorrhoids but no evidence of colorectal neoplasia. Biopsies were obtained. Patient to be started on iron supplementations twice daily and follow-up in the office in 2 weeks and consider small bowel capsule endoscopy as an outpatient. Patient will be given 1 dose of Ferrlecit prior to discharge. Repeat hemoglobin is 7.2. Patient will be discharged home later today after Ferrlecit infusion is completed. Discharge diagnoses: 1. Anemia, iron deficiency, acute on chronic blood loss of unclear source, poss ibly due to gastritis. 2. History of closed head injury and intracranial bleed, stable. 3. 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 4. Trigeminal neuralgia. 5. Recurrent depression. Discharge plan: Return home Impression and plan of care have been directed as dictated by the signing physician. Jesika Devlin nurse practitioner acting as scribe for signing physician. Patient Condition at Discharge: Good Plan - Discharge Summary New Discharge Prescriptions: New Ferrous Sulfate [Feosol] 325 mg PO BID #60 tab Continue QUEtiapine FUMARATE 100 mg PO HS Gabapentin [Neurontin] 3,200 mg PO HS Topiramate [Topamax] 100 mg PO HS Venlafaxine HCl [Effexor XR] 150 mg PO HS OXcarbazepine [Trileptal] 300 mg PO HS Discontinued Ibuprofen [Motrin] 800 mg PO HS PRN PRN Reason: Pain Discharge Medication List Gabapentin [Neurontin] 3,200 mg PO HS 07/31/16 [History] QUEtiapine FUMARATE 100 mg PO HS 07/31/16 [History] Topiramate [Topamax] 100 mg PO HS 05/10/19 [History] OXcarbazepine [Trileptal] 300 mg PO HS 05/11/19 [History] Venlafaxine HCl [Effexor XR] 150 mg PO HS 05/11/19 [History] Ferrous Sulfate [Feosol] 325 mg PO BID #60 tab 05/13/19 [Rx] Follow up Appointment(s)/Referral(s): Cherelle Mullen MD [STAFF PHYSICIAN] - 2 Weeks (Patient will call and make her own appointment. ) Silvio Chong MD [Primary Care Provider] - 1 Week (Patient to call Dr. Chong's office Thursday morning to schedule follow up appointment. The office is closed at time of discharge. ) Kathleen Millard MD [STAFF PHYSICIAN] - 1 Week (Dr. Bender's office will call patient with an appointment date and time. ) Patient Instructions/Handouts: Iron Supplements (By mouth), Anemia (DC) Discharge Disposition: HOME SELF-CARE
== END 2019-05-13 13:30 | disposition home or self-care (01) ==
LOC: EC 17:55 → 3NMEDONC 20:34
PROVIDERS: ADMIT Internal Medicine; ATTEND Internal Medicine
DX: D50.9 Iron deficiency anemia, unspecified (principal); D62 Acute posthemorrhagic anemia; K29.70 Gastritis, unspecified, without bleeding; K64.8 Other hemorrhoids; K44.9 Diaphragmatic hernia without obstruction or gangrene; Z87.820 Personal history of traumatic brain injury; G40.909 Epilepsy, unspecified, not intractable, without status epilepticus; G50.0 Trigeminal neuralgia; F41.9 Anxiety disorder, unspecified; F33.9 Major depressive disorder, recurrent, unspecified; Z86.79 Personal history of other diseases of the circulatory system; E66.9 Obesity, unspecified; Z68.33 Body mass index [BMI] 33.0-33.9, adult; Z79.899 Other long term (current) drug therapy; Z53.8 Procedure and treatment not carried out for other reasons; Z90.49 Acquired absence of other specified parts of digestive tract; Z79.1 Long term (current) use of non-steroidal anti-inflammatories (NSAID); Z88.2 Allergy status to sulfonamides; Z91.040 Latex allergy status
CPT/HCPCS: 36430; 96361 ×3; 96374; 96375; 99285; 36415; 86900; 86901; 88305; 80053 ×2; 82728; 82550; 83540; 83550; 83690; 83735; 84484; 85025; 85027 ×2; 85610; 85045; 85730; 86850; 86920; 84165; 83010; 45378; 43239; G0378 ×4; P9016; J2405; J2001; J2916; J2704; C9113 ×3

== ENCOUNTER → 2019-08-27 | Outpatient (CLI) | payer MEDICARE ==
--- NOTE | 2019-08-28 14:20 | CT ---
"EXAMINATION TYPE: CT abdomen w con DATE OF EXAM: 08/27/2019 COMPARISON: None INDICATION: enlarged spleen, anemia DLP: 1567 mGycm, Automated exposure control for dose reduction was used. CONTRAST: 100 mL of Isovue 300. Study performed with Oral Contrast TECHNIQUE: Axial images were obtained from above the diaphragm to the iliac crests in the axial plane at 5 mm thick sections. Reconstructed images are reviewed on the computer in the coronal plane. FINDINGS: Limited CT sections are obtained the lung bases. The lung bases are clear. CT ABDOMEN: Small amount of ascites is adjacent to the right tip of the liver and is within the right paracolic gutter. Small amount of free fluid is within the upper portion of the pelvis adjacent to m asses or cysts the upper pelvis. Omental caking is not identified. There is a large hypodense structure within the midabdomen. This may has some soft tissue density pos terior laterally into the upper pelvis. This area measures 12.4 x 15.8 x 14.6 cm. Large ovarian cysts should be considered. At the edge of the [id number] are within the upper pelvis is additional hyp odense areas. Additional workup with pelvic ultrasound and CT pelvis is recommended. Ovarian neoplasm should be considered. Liver: Normal Spleen: Enlarged measuring 16.5 cm in craniocaudal dimension. Normal less than 12.5 cm. Pancreas: Normal Adrenal glands: The adrenal glands are normal. Gallbladder: Surgically absent Kidneys: No masses are evident. No hydronephrosis is present. No cysts are present. Delayed images were obtained through the kidneys, which remain unremarkable. Aorta: Normal Inferior vena cava: Normal. IMPRESSIONS: 1. Splenomegaly. 2. Large 15 cm cystic structure mid abdomen with additional partially visualized cystic areas in the upper pelvis as well as some free fluid within the right paracolic gutter. Additional workup to evalu ate for ovarian cancer is recommended. Pelvic CT and pelvic ultrasound can be utilized. A Yellow level critical message alert has been initiated for Kathleen Millard MD via the [employer] | Critical Results System on 08/28/2019 2:18 PM. This message alert has been sent to Kathleen Millard MD via the preferences provided by the clinician for the receipt of Radiology Critical Findings. Mess age ID [id number]."
== END | disposition home or self-care (01) ==
LOC: RADCTMAIN 09:38
PROVIDERS: ATTEND Internal Medicine Hematology & Oncology
DX: R16.1 Splenomegaly, not elsewhere classified (principal); R19.00 Intra-abdominal and pelvic swelling, mass and lump, unspecified site; R18.8 Other ascites; Z88.2 Allergy status to sulfonamides; Z91.040 Latex allergy status
CPT/HCPCS: 74160; Q9967

== ENCOUNTER → 2019-09-02 | Outpatient (CLI) | payer MEDICARE ==
--- NOTE | 2019-09-02 19:47 | CT ---
EXAMINATION TYPE: CT pelvis w con DATE OF EXAM: 09/02/2019 COMPARISON: None CT abdomen 08/27/2019 HISTORY: pelvic cyst CT DLP: 1380 mGycm Automated exposure control for dose reduction was used. CONTRAST: Performed with IV Contrast, patient injected with 100 mL of Isovue 300. There is a large cyst in the mid abdomen on the left side of the midline that measures 15 x 12 cm. Th ere is irregular septations and multiple satellite cysts inferiorly. There is a large irregular thick walled cystic mass with internal septations in the pelvis on the right side. This measures 10 x 14 c m. There is some displacement of the uterus the left side. There is no free fluid in the pelvis. Blad fortunato distends smoothly. Uterus is anteverted. There is probably a fibroid on the anterior wall of the uterus that measures 2.5 cm. There is no inguinal hernia. The bony pelvis appears intact. IMPRESSION: Bilateral large abdominal and pelvic cystic masses probably arising from the ovaries bilaterally. Siz e is now significantly different than the recent CT scan of 08/27/2019. There is irregular thick septa tions. 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
== END | disposition home or self-care (01) ==
LOC: RADCTMAIN 16:46
PROVIDERS: ATTEND Internal Medicine Hematology & Oncology
DX: N94.89 Other specified conditions associated with female genital organs and menstrual cycle (principal)
CPT/HCPCS: 72193; Q9967

== ENCOUNTER → 2019-10-04 | Outpatient (CLI) | payer MEDICARE ==
[2019-10-04 12:51] VITALS: BP 110/76; PULSE 73; RESP 18; TEMP 98.2
--- NOTE | 2019-10-04 13:12 | P.GSHP ---
History of Present Illness H&P Date: 10/04/19 Chief Complaint: bresat mass right breast Zuleima is a 44 year old white female who noted a lump in her right breast about two weeks ago. It has not changed in size since she noted it. It is not painful. She had a ANU two weeks ago for ovarian cancer. It was done at [facility] in [place]. patient denies any nipple discharge or skin changes. She has seen Dr. Magaña in August and a CT scan was done which showed a mass in her ovary, and this led to surgery. Tney are uncertain as to the cause of the anemia. She had a mammogram today and has not yet been read. She was told however, she would need a biopsy. They also did an ultrasound of the breast. Family History: paternal aunt: ovarian paternal aunt: breast cancer Medical history: Menarche: 10 , breast fed: no, age at first : 17 hysterectomy done last month, periods were normal BCP: none hormones: none Past Surgical History: 1. ANU 2. gallbaldder 3. appy 4. hatchet attack/mathieu and face surgery Past Medical History: 1. seizures 2. post traumatic stress disorder Social History: smoke: none alcohol: none drugs: none - Constitutional Constitutional: Denies chills, Denies fever - EENT Eyes: denies blurred vision, denies pain Ears: deny: decreased hearing, tinnitus Ears, nose, mouth and throat: Denies headache, Denies sore throat - Breasts Breasts: bilateral: as per HPI - Cardiovascular Comment: SOB when anemic Cardiovascular: Reports shortness of breath, Denies chest pain - Respiratory Respiratory: Denies cough, Denies 7 - Gastrointestinal Comment: colonoscopy: negative in April, no EGD done Gastrointestinal: Denies abdominal pain, Denies diarrhea, Denies nausea, Denies vomiting - Genitourinary (Female) Comment: ovarian cancer/ stage IIIC, will talk to Dr. Magaña today regarding chemotherapy Genitourinary: Denies dysuria, Denies hematuria - Menstruation Comment: ovarian cancer Menstruation: Reports post hysterectomy - Musculoskeletal Musculoskeletal: Denies myalgias - Integumentary Integumentary: Denies pruritus, Denies rash - Neurological Neurological: Denies numbness, Denies weakness - Psychiatric Psychiatric: Reports anxiety, Reports depression - Endocrine Endocrine: Reports fatigue, Reports weight change - Hematologic/Lymphatic Comment: anemia unknown cause - Allergic/Immunologic Comment: none Past Medical History Past Medical History: Seizure Disorder Additional Past Medical History / Comment(s): STATES SEIZURES HARD TO DETECT-SHE STARES. , HX OF FACIAL INJURIES FROM HATCHET., ANEMIA. History of Any Multi-Drug Resistant Organisms: None Reported Past Surgical History: Appendectomy, Section, Cholecystectomy Additional Past Surgical History / Comment(s): FACIAL SURGERIES. Past Anesthesia/Blood Transfusion Reactions: No Reported Reaction, Motion Sickness Smoking Status: Never smoker - Past Family History Mother Family Medical History: No Reported History Additional Family Medical History / Comment(s): Mother is alive at age 67 with no major medical problems. Father Additional Family Medical History / Comment(s): Father is alive at age 67 with no major medical problems. Brother(s) Additional Family Medical History / Comment(s): Patient has 1 brother and 1 sister with no major medical problems. Patient has 2 sons and 2 daughters with no major medical problems. Medications and Allergies Home Medications Medication Instructions Recorded Confirmed Type Gabapentin [Neurontin] 3,200 mg PO HS 07/31/16 09/02/19 History QUEtiapine FUMARATE 100 mg PO HS 07/31/16 09/02/19 History Topiramate [Topamax] 100 mg PO HS 05/10/19 09/02/19 History OXcarbazepine [Trileptal] 300 mg PO HS 05/11/19 09/02/19 History Venlafaxine HCl [Effexor XR] 150 mg PO HS 05/11/19 09/02/19 History Ferrous Sulfate [Feosol] 325 mg PO BID #60 tab 05/13/19 09/02/19 Rx Allergies Allergy/AdvReac Type Severity Reaction Status Date / Time latex Allergy Unknown Rash/Hives Verified 09/05/19 09:16 Sulfa (Sulfonamide Allergy Unknown Unknown Verified 09/05/19 09:16 Antibiotics) Surgical - Exam BMI 32.9 - General well developed, well nourished, no distress - Eyes normal ocular movement - ENT no hearing loss, no congestion - Neck no masses, trachea midline - Respiratory normal respiratory effort, clear to auscultation - Cardiovascular Rhythm: regular Heart Sounds: normal: S1, S2 - Abdomen Well-healed scar in midline mildred in place Abdomen: soft, non tender, no guarding, no rigid, no rebound - Integumentary no rash, no abnormal pigmentation - Neurologic no disoriented, no combative - Musculoskeletal normal gait, normal posture - Psychiatric oriented to time, oriented to person, oriented to place, speech is normal, memory intact Past examination: Bra: 38 double D Inspection: No nipple discharge or skin changes of concern, ptosis grade 3 Palpation: Right breast:Fibrocystic breast changes multi-positional exam upper outer quadrant area increased nodularity approximately 4 cm in size Right axilla: No adenopathy of concern Left breast: Fibrocystic changes multi-positional exam no dominant masses or nodules of concern Left axilla: No adenopathy of concern Results mammogram and ultrasound results pending Assessment and Plan Assessment: Impression: 1. Mass right breast upper outer quadrant 2. Recently diagnosed stage IIIc ovarian cancer 3. Post traumatic stress disorder status post trauma 4. Anxiety/depression Plan: 1. Right breast ultrasound-guided core biopsy 2. Follow up with Dr. Magaña regarding ovarian cancer and follow fact, on a cancer Center 3. Follow-up here following ultrasound core biopsy Cc: Dr. Chong encounter: 35 minutes, greater than 50% of time in planning and counselling Time with Patient: Greater than 30
== END | disposition home or self-care (01) ==
LOC: WWCWWP 12:41
PROVIDERS: ATTEND Surgery
DX: Z53.9 Procedure and treatment not carried out, unspecified reason (principal)

== ENCOUNTER → 2019-10-04 | Outpatient (CLI) | payer MEDICARE ==
--- NOTE | 2019-10-12 09:17 | MM ---
Reason for exam: clinical finding. Baseline mammogram. History: Patient is postmenopausal and history of ovarian cancer. Physical Findings: Nurse Summary: 4.5cm nodule in the right breast at 11 o'clock and a 2cm nodule in the left breast at 1 o'clock (nurse dw). MG 3D Diag Mammo W/Cad ETHAN Bilateral CC and MLO view(s) were taken. There are scattered fibroglandular densities. There is a highly suspicious 3.8cm right upper outer quadrant mass tethering the pectoralis muscles. Prominent right axillary lymph nodes. No suspicious abnormality in the left breast. These results were verbally communicated with the patient and result sheet given to the patient on 10/04/19. ASSESSMENT: Incomplete: need additional imaging evaluation, BI-RAD 0 RECOMMENDATION: Ultrasound of both breasts. (palpables and axilla)
--- NOTE | 2019-10-12 09:20 | USB ---
Reason for exam: additional evaluation requested from abnormal screening. History: Patient is postmenopausal and history of ovarian cancer. US Breast Limited BILAT Technologist: Beatriz Ansari Right limited breast ultrasound including focal area of concern, retroareolar and axilla demonstrates a 3.6 x 2.7 x 3.0cm spiculated, solid lesion at 10 o'clock and a 1.1 x 0.9 x 0.7cm lesion at the axilla. These results were verbally communicated with the patient and result sheet given to the patient on 10/04/19. ASSESSMENT: Suspicious, BI-RAD 4 RECOMMENDATION: Ultrasound core biopsy of the right breast. Called Dr. Chong's office with mammographic findings and has scheduled an appointment for the patient for 10/04/19 at 12:[address] Smith. Biopsy scheduled for 10/05/19 at 9:00. PRELIMINARY REPORT CALLED AND FAXED TO DR. SMITH ON 10/12/19.
== END | disposition home or self-care (01) ==
LOC: RADMAMWWP 10:55
PROVIDERS: ATTEND Family Medicine
DX: N63.10 Unspecified lump in the right breast, unspecified quadrant (principal)
CPT/HCPCS: 77066; 76642; G0279; 77062

== ENCOUNTER → 2019-10-05 | Day surgery (SDC) | payer MEDICARE ==
[2019-10-05 08:31] VITALS: RESP 16; TEMP 98.1
[2019-10-05 10:04] VITALS: BP 102/67; PULSE 60
--- NOTE | 2019-10-05 11:28 | USB ---
EXAMINATION TYPE: US biopsy breast VAD RT, MG diagnostic mammo RT wo CAD DATE OF EXAM: 10/05/2019 CLINICAL HISTORY: ABNORMAL MAMMOGRAM. Abnormal ultrasound. History of ovarian cancer. TECHNIQUE: Ultrasound guided core biopsy of right breast with clip placement and follow-up diagnostic mammogram. COMPARISON: Mammogram and ultrasound from one day earlier. FINDINGS: The procedure of ultrasound guided core biopsy was explained to the patient. Benefits, alternatives, and risks were discussed. An informed consent was then obtained. The patient was placed in supine positioning for imaging and for the procedure. Preprocedure ultrasound redemonstrates large lobulated heterogeneous hypoechoic mass 10:00 position in the right breast measuring roughly 3.5 cm long axis. Preprocedure ultrasound redemonstrates a suspicious roughly 1.0 cm lymph node in the right axilla with loss of normal fatty hilum. The overlying skin was prepped and draped in usual sterile fashion. Lidocaine is used as anesthetic into the skin and subcutaneous tissue up to area of concern in the right breast. Lidocaine with epinephrine is used for anesthetic in the deeper tissue.. Under ultrasound guidance, a vacuum assisted biopsy gun device was used to obtain 3 core samples of the large mass. Following this, a biopsy clip was left in lesion. Under ultrasound guidance, a [employer] biopsy gun device was used to obtain 3 core samples of the suspicious right axillary lymph node. Following this, a hydromark clip was left in lesion. The patient tolerated the procedure well without any immediate complication. The patient was kept in the radiology department for short stay after the procedure and then discharged home in stable condition. Postprocedure mammogram shows successful deployment of clip in large right breast mass and hydromark clip in one of the suspicious right axillary lymph nodes. IMPRESSION: Successful, uncomplicated ultrasound guided core biopsy of both areas of concern in the right breast, full pathology results to follow. High index of suspicion noted at time of procedure. Pathology Results: Malignant A. RIGHT BREAST LESION AT TEN O'CLOCK, BIOPSY: High grade (Stephanie Grade 3) infiltrating carcinoma consistent with ductal type breast adenocarcinoma. Necrosis is present. See Surgical Pathology Cancer Case Summary. An appropriately controlled immunohistochemical study for E-Cadherin is strongly positive in infiltrating carcinoma cells confirming this poorly differentiated neoplasm as ductal adenocarcinoma. B. RIGHT AXILLARY NODULE, NEEDLE CORE BIOPSIES: Scant fragment of lymphoid tissue with crushed atypical epithelioid cells suspicious for metastatic adenocarcinoma. Appropriately controlled immunohistochemical studies for ZANDER and Cytokeratin 7 are non contributory due to tumor depletion. Recommendation Surgical consult of the right breast. MTDD
--- NOTE | 2019-10-05 11:36 | USB ---
Case dictated with same day ultrasound guided biopsy. Please refer to that report. Pathology Results: Malignant A. RIGHT BREAST LESION AT TEN O'CLOCK, BIOPSY: High grade (Stephanie Grade 3) infiltrating carcinoma consistent with ductal type breast adenocarcinoma. Necrosis is present. See Surgical Pathology Cancer Case Summary. An appropriately controlled immunohistochemical study for E-Cadherin is strongly positive in infiltrating carcinoma cells confirming this poorly differentiated neoplasm as ductal adenocarcinoma. B. RIGHT AXILLARY NODULE, NEEDLE CORE BIOPSIES: Scant fragment of lymphoid tissue with crushed atypical epithelioid cells suspicious for metastatic adenocarcinoma. Appropriately controlled immunohistochemical studies for ZANDER and Cytokeratin 7 are non contributory due to tumor depletion. Recommendation Surgical consult of the right breast. MTDD
--- NOTE | 2019-10-10 10:28 | CDI ---
Date: 10.10.19 CDS/Oracle Application Consultant Name: Jennifer Contreras Phone: If any questions, call Katerina Ibarra Marketing Automation Manager at [phone] Patient Name: Zuleima Neal Admit Date: 10.05.19 Discharge Date: 10.05.19 ATTENTION: The [facility] Coding Staff appreciate your assistance in clarifying documentation. Please respond to the clarification below the line at the bottom and electronically sign. The [facility] Coding staff will review the response and follow-up if needed. Please note: Queries are made part of the Legal Health Record. If you have any questions, please contact the Marketing Automation Manager. Dear Dr. Simms Was the biopsy of the right axillary lymph node superficial or deep? In order to correctly charge I need this information. Thank you for your kind consideration. It was a deep lymph node biopsy (not palapable) [facility]
== END ==
LOC: RADUSWWP 08:02
PROVIDERS: ATTEND Surgery
DX: C50.911 Malignant neoplasm of unspecified site of right female breast (principal); R89.7 Abnormal histological findings in specimens from other organs, systems and tissues; Z17.0 Estrogen receptor positive status [ER+]
CPT/HCPCS: 88305; 88342; 88341; 77065; 38505; 19083; A4648; J2001

== ENCOUNTER → 2019-10-18 | Outpatient (CLI) | payer MEDICARE ==
--- NOTE | 2019-10-18 14:43 | P.PN ---
Progress Note - Text Progress Note Date: 10/18/19 This is dictation for a teleconference for Amy. Dewey is a 44-year-old white female who is status post core biopsy of a right breast lesion at 10:00 as well as a right axillary lymph node. The right breast biopsy revealed grade 3 invasive ductal carcinoma low positivity for estrogen and progesterone receptors and HER-2 negative. The patient also had a core biopsy of a right axillary lymph node which revealed crushed atypical epithelial cells suspicious for metastatic adenocarcinoma. Of importance is the fact that the patient has recently undergone a total abdominal hysterectomy for stage III ovarian cancer. She also has a history of anemia of unknown origin. She has been seen by medical oncology and is going to have genetic testing performed tomorrow. She is starting chemotherapy tomorrow. She is scheduled for a chest CT and bone scan to be done later this week. The patient states she has no complaints related to the breast biopsy. She is not complaining of any fever or chills. She is complaining of any ecchymosis. She does state that the area in the breast of concern does seem to have increased in size. She brought this to the attention of medical oncology and was recommended to start the chemotherapy and told that this area should decrease in size. I given her the option of coming in today to see me personally to examine the area and she wishes to wait secondary to the patient and make situation. She is going to start chemotherapy tomorrow. We are going to present her case at tumor board. I discussed with the patient surgical options which range from lumpectomy sentinel node biopsy/axillary node dissection to bilateral mastectomy plus or minus reconstruction. She understands that we will have more information to answer those questions after results of metastatic workup and chemotherapy response are noted. Impression/plan 1. Recent total abdominal hysterectomy for stage III ovarian cancer 2. Right breast stage II B invasive ductal carcinoma 3. Questionable increase in size of tumor in the right breast 4. Patient has had appointment with medical oncology is going to start chemotherapy tomorrow 5. Genetic testing been ordered 6. Metastatic workup been ordered 7. Follow-up with Dr. Rodgers in 1 week CC: Dr. Chong encounter tele conference 30 minutes
== END ==
LOC: WWCWWP 14:08
PROVIDERS: ATTEND Surgery
DX: Z53.9 Procedure and treatment not carried out, unspecified reason (principal)

== ENCOUNTER → 2019-10-20 | Outpatient (CLI) | payer MEDICARE ==
--- NOTE | 2019-10-20 09:43 | CT ---
EXAMINATION TYPE: CT chest w con DATE OF EXAM: 10/20/2019 COMPARISON: CT abdomen August 27, 2019. Bilateral breast ultrasound October 04, 2019. HISTORY: breast and ovarian CA. Right-sided breast cancer recently diagnosed October 05, 2019. CT DLP: 388.7 mGycm. Automated Exposure Control for Dose Reduction was Utilized. TECHNIQUE: CT scan of the thorax is performed following with IV Contrast, patient injected with 100 mL of Isovue 300. FINDINGS: LUNGS: The lungs are grossly clear, there is no concerning greater than 4 mm parenchymal mass or nodu le identified. Occasional scattered micronodule for reference lateral 2 mm right lower lobe nodule a xial image 27. There is no pleural effusion or pneumothorax seen. The tracheobronchial tree is paten t. MEDIASTINUM: There are no greater than 1 cm hilar or mediastinal lymph nodes. No cardiomegaly is se en. Trace pericardial effusion inferiorly is stable. There is thrombus in the distal left pulmonary artery as branches and left lingular and lower lobe branches beginning on axial image 18 with greates t thrombus noted in the lower lobe branches. No significant right-sided pulmonary embolism. No suspic ious right ventricular dilatation. OTHER: Redemonstration of known right-sided breast mass or neoplasm with central biopsy clip axial im age 10 measuring 3.4 x 3.6 x 3.4 cm craniocaudal dimension coronal image 25. Prominent but subcentime ter right axillary lymph nodes with suspected biopsy clip coronal image 45 narrowing largest subcenti meter lymph node coronal image 42 just posterior inferior to this suspicious but subcentimeter lymph node on ultrasound. No suspicious left axillary adenopathy. Partial visualization of known splenomega ly. Kaud-if-fzamjlsf multilevel spurring in the mid to lower thoracic spine with slight scoliotic cur vature on coronal images. IMPRESSION: 1. Fairly prominent left-sided pulmonary embolism. No CT evidence for RV strain. 2. Known right-sided breast cancer. No evidence for metastatic disease in the thorax. The ordering oncologist made aware of pulmonary embolism via telephone call at time of dictation. A Document Only message has been documented for Kathleen Millard MD in the [employer] system on 10/20/2019 9:41 AM, Message ID [id number].
--- NOTE | 2019-10-20 14:07 | NM ---
EXAMINATION TYPE: NM bone scan whole body DATE OF EXAM: 10/20/2019 COMPARISON: Correlation CT chest same day HISTORY: 44-year-old female newly diagnosed ovarian cancer and known metastatic disease from breast c ancer. TECHNIQUE: Delayed whole-body scanning was performed following the injection of 22.8 mCi Tc 99m MDP. Images acquired 3 hours post injection. FINDINGS: Some increased activity in the mouth likely corresponds to periodontal disease. Some focal increased activity posterior elements of the left upper cervical spine likely degenerative . Degenerative tracer activity in both shoulders, right knee, and left hindfoot. Also, mild at the ster noclavicular joints. No suspicious distribution of tracer to suggest osseous metastatic disease. IMPRESSION: Scattered degenerative tracer activity. No convincing scintigraphic evidence for osseous metastatic d isease at this time.
== END | disposition home or self-care (01) ==
LOC: RADCTMAIN 08:36
PROVIDERS: ATTEND Internal Medicine Hematology & Oncology
DX: Z03.89 Encounter for observation for other suspected diseases and conditions ruled out (principal); I26.99 Other pulmonary embolism without acute cor pulmonale; C50.411 Malignant neoplasm of upper-outer quadrant of right female breast; C56.1 Malignant neoplasm of right ovary; Z88.2 Allergy status to sulfonamides; Z91.040 Latex allergy status
CPT/HCPCS: 71260; 78306; A9503; Q9967

== ENCOUNTER → 2019-10-25 | Outpatient (CLI) | payer MEDICARE ==
--- NOTE | 2019-10-25 10:11 | P.PN ---
Subjective Progress Note Date: 10/25/19 Principal diagnosis: right breast cancer Zuleima is a 44 year old white female who noted a lump in her right breast . She had a ANU recently for stage three ovarian cancer. It was done at [facility] in [place]. She has seen Dr. Magaña in August and a CT scan was done which showed a mass in her ovary, and this led to surgery. She has anemia of uncertain cause anemia. She had a bilateral mammogram and ultrasound of the right breast. This revealed a lesion of concern in the right breast. She underwent a right breast core biopsy of the lesion in the breast as well as a right axillary lymph node. The right breast biopsy revealed grade 3 invasive ductal carcinoma low positivity for estrogen and progesterone receptors and HER-2 negative. She also had a core biopsy of right axillary lymph node which revealed question atypical cells suspicious for metastatic adenocarcinoma, at tumor board on today's presentation it was felt that this was positive. She was started on chemotherapy which would be effective against both the breast cancer and the ovarian cancer. The patient however was concerned that the lesion in the right breast had increased in size since she initially noted it. The patient states at this time she feels that the lesion is the same size as when she initially presented. Since the patient was last seen she had a CAT scan of the chest performed which revealed a pulmonary embolus in the left lung. She has been started on eliques by Dr. Millard. She states she has had a recent low WBC, although her anemia has improved. Scheduled for an iron transfusion today. On 10/19/19 CBC was performed. WBC: 2.8 Hemoglobin: 10.5 Platelets: 166 Family History: paternal aunt: ovarian paternal aunt: breast cancer Medical history: Menarche: 10 , breast fed: no, age at first : 17 hysterectomy done last month, periods were normal BCP: none hormones: none Past Surgical History: 1. ANU 2. gallbaldder 3. appy 4. hatchet attack/mathieu and face surgery Past Medical History: 1. seizures 2. post traumatic stress disorder Social History: smoke: none alcohol: none drugs: none - Constitutional Constitutional: Denies chills, Denies fever - EENT Eyes: denies blurred vision, denies pain Ears: deny: decreased hearing, tinnitus Ears, nose, mouth and throat: Denies headache, Denies sore throat - Breasts Breasts: bilateral: as per HPI - Cardiovascular Comment: SOB when anemic Cardiovascular: Reports shortness of breath, Denies chest pain - Respiratory Respiratory: Denies cough, Denies 7 - Gastrointestinal Comment: colonoscopy: negative in April, no EGD done Gastrointestinal: Denies abdominal pain, Denies diarrhea, Denies nausea, Denies vomiting - Genitourinary (Female) Comment: ovarian cancer/ stage IIIC, will talk to Dr. Magaña today regarding chemotherapy Genitourinary: Denies dysuria, Denies hematuria - Menstruation Comment: ovarian cancer Menstruation: Reports post hysterectomy - Musculoskeletal Musculoskeletal: Denies myalgias - Integumentary Integumentary: Denies pruritus, Denies rash - Neurological Neurological: Denies numbness, Denies weakness - Psychiatric Psychiatric: Reports anxiety, Reports depression - Endocrine Endocrine: Reports fatigue, Reports weight change - Hematologic/Lymphatic Comment: anemia unknown cause - Allergic/Immunologic Comment: none Past Medical History Past Medical History: Seizure Disorder Additional Past Medical History / Comment(s): STATES SEIZURES HARD TO DETECT-SHE STARES. , HX OF FACIAL INJURIES FROM HATCHET., ANEMIA. History of Any Multi-Drug Resistant Organisms: None Reported Past Surgical History: Appendectomy, Section, Cholecystectomy Additional Past Surgical History / Comment(s): FACIAL SURGERIES. Past Anesthesia/Blood Transfusion Reactions: No Reported Reaction, Motion Sickness Smoking Status: Never smoker Objective - Exam BMI 34 - Constitutional General appearance: Present: obese - EENT Eyes: Present: EOMI ENT: Present: hearing grossly normal - Neck Neck: Present: normal ROM - Respiratory Respiratory: bilateral: CTA - Cardiovascular Rhythm: regular Heart sounds: normal: S1, S2 - Gastrointestinal Gastrointestinal Comment(s): Incision clean and dry - Integumentary Integumentary: Present: normal turgor - Musculoskeletal Musculoskeletal: Present: gait normal - Psychiatric Psychiatric: Present: A&O x's 3, appropriate affect - Additional findings Additional findings: Breast examination: Right breast: The examination of the right breast reveals the area of concern initially noted has increased in size. This is approximately 9 x 10 cm in size at this time. It is not fixed to the chest wall. Is in the upper outer quadrant. No other masses or nodules of concern are noted in the breast, fibrocystic changes noted Right axilla: Positive adenopathy is now noted with a single no palpable approximately 1-1/2 cm in size in the inferior aspect of the axilla Left breast examination was performed which revealed only fibrocystic changes Left axillary exam was not repeated Assessment and Plan Assessment: Impression: 1. Biopsy-proven right breast cancer stage IIIb Recently diagnosed stage IIIc ovarian cancer status post surgery 3. Postoperative stress disorder status post trauma 4. Anxiety/depression 5. Patient recently started on chemotherapy 6. Recent diagnosis of pulmonary embolism Plan: 1. Patient's case has been presented at tumor board today, the patient is started on chemotherapy which will be treatment for both ovarian and breast cancer. 2. I have discussed with medical oncology that the tumor in the breast has increased in size and they have recommended continuing treatment with the chemotherapy and reevaluated in approximately 1 month 3. Patient is recently diagnosed with pulmonary embolism and is on eliquis 4. Patient will follow up here in 2 weeks if the tumor increases in size between now and then she will follow up sooner CC: Dr. Chong encounter: 20 minutes, greater than 50% of time in planning and counselling Time with Patient: Less than 30
[2019-10-25 10:13] VITALS: BP 111/76; PULSE 122; RESP 18; TEMP 98
== END | disposition home or self-care (01) ==
LOC: WWCWWP 09:49
PROVIDERS: ATTEND Surgery
DX: Z53.9 Procedure and treatment not carried out, unspecified reason (principal)

== ENCOUNTER → 2019-11-17 | Outpatient (CLI) | payer MEDICARE ==
[2019-11-17 10:23] VITALS: BP 112/79; PULSE 95; RESP 18; TEMP 98
--- NOTE | 2019-11-17 10:34 | P.PN ---
Subjective Progress Note Date: 11/17/19 Principal diagnosis: Breast stage IIB, ovarian Stage III right breast cancer/stage IIB, stage III ovarian cancer Zuleima is a 44 year old white female who noted a lump in her right breast . She had a ANU recently for stage three ovarian cancer. It was done at [facility] in [place]. She has seen Dr. Magaña in August and a CT scan was done which showed a mass in her ovary, and this led to surgery. She has anemia of uncertain cause anemia. She had a bilateral mammogram and ultrasound of the right breast. This revealed a lesion of concern in the right breast. She underwent a right breast core biopsy of the lesion in the breast as well as a right axillary lymph node. The right breast biopsy revealed grade 3 invasive ductal carcinoma low positivity for estrogen and progesterone receptors and HER-2 negative. She also had a core biopsy of right axillary lymph node which revealed question atypical cells suspicious for metastatic adenocarcinoma, at tumor board presentation it was felt that this was positive. She was started on chemotherapy which would be effective against both the breast cancer and the ovarian cancer. She has had 2 courses of chemotherapy. She states that the lesion in the right breast is completely resolved. Since the patient was last seen she had a CAT scan of the chest performed which revealed a pulmonary embolus in the left lung. She has been started on eliques by Dr. Millard. She states she has had a recent low WBC, although her anemia has improved. BRCA1 testing was performed and these are to be faxed to us. On 10/19/19 CBC was performed. WBC: 2.8 Hemoglobin: 10.5 Platelets: 166 Family History: paternal aunt: ovarian paternal aunt: breast cancer Medical history: Menarche: 10 , breast fed: no, age at first : 17 hysterectomy done last month, periods were normal BCP: none hormones: none Past Surgical History: 1. ANU 2. gallbaldder 3. appy 4. hatchet attack/mathieu and face surgery Past Medical History: 1. seizures 2. post traumatic stress disorder Social History: smoke: none alcohol: none drugs: none - Constitutional Constitutional: Denies chills, Denies fever - EENT Eyes: denies blurred vision, denies pain Ears: deny: decreased hearing, tinnitus Ears, nose, mouth and throat: Denies headache, Denies sore throat - Breasts Breasts: bilateral: as per HPI - Cardiovascular Comment: SOB when anemic Cardiovascular: Reports shortness of breath, Denies chest pain - Respiratory Respiratory: Denies cough, Denies 7 - Gastrointestinal Comment: colonoscopy: negative in April, no EGD done Gastrointestinal: Denies abdominal pain, Denies diarrhea, Denies nausea, Denies vomiting - Genitourinary (Female) Comment: ovarian cancer/ stage IIIC, will talk to Dr. Magaña today regarding chemotherapy Genitourinary: Denies dysuria, Denies hematuria - Menstruation Comment: ovarian cancer Menstruation: Reports post hysterectomy - Musculoskeletal Musculoskeletal: Denies myalgias - Integumentary Integumentary: Denies pruritus, Denies rash - Neurological Neurological: Denies numbness, Denies weakness - Psychiatric Psychiatric: Reports anxiety, Reports depression - Endocrine Endocrine: Reports fatigue, Reports weight change - Hematologic/Lymphatic Comment: anemia unknown cause - Allergic/Immunologic Comment: none Past Medical History Past Medical History: Seizure Disorder Additional Past Medical History / Comment(s): STATES SEIZURES HARD TO DETECT-SHE STARES. , HX OF FACIAL INJURIES FROM HATCHET., ANEMIA. History of Any Multi-Drug Resistant Organisms: None Reported Past Surgical History: Appendectomy, Section, Cholecystectomy Additional Past Surgical History / Comment(s): FACIAL SURGERIES. Past Anesthesia/Blood Transfusion Reactions: No Reported Reaction, Motion Sickness Smoking Status: Never smoker Objective - Exam BMI 33.7 - Constitutional General appearance: Present: obese - EENT Eyes: Present: EOMI ENT: Present: hearing grossly normal - Neck Neck: Present: normal ROM - Respiratory Respiratory: bilateral: CTA - Cardiovascular Rhythm: regular Heart sounds: normal: S1, S2 - Gastrointestinal General gastrointestinal: Present: soft - Integumentary Integumentary: Present: normal turgor - Musculoskeletal Musculoskeletal: Present: gait normal - Psychiatric Psychiatric: Present: A&O x's 3, appropriate affect, intact judgment & insight - Additional findings Additional findings: Breast BRA 36D Inspection: No skin lesions of concern, no nipple inversion Preparation: Right breast: Multiple positional exam some fullness in the upper outer quadrant area but marked resolution of the dominant mass which was present prior to initiation of chemotherapy, fibrocystic changes Right axilla: No dominant had an neuropathy of concern Left breast: Fibrocystic changes Left axilla: No adenopathy of concern Assessment and Plan Assessment: Impression: 1. Stage II the right breast cancer responding to neoadjuvant chemotherapy 2. Stage III ovarian cancer recent ANU/BSO 3. BRCA test results reported as positive, awaiting for written report Plan: 1. Continue chemotherapy 2. We will follow with patient in 2 months 3. Patient is going to consideration like to do if indeed her back at test is positive We have discussed the treatment possibilities of this as a BRCA1 positive lesion. She is most likely going to opt for bilateral mastectomy plus or minus reconstruction. We will discuss this further in 2 months when she is seen at that time. CC: DR. Chong encounter 30 minutes, > 50% of time in planning and counselling Time with Patient: Greater than 30
== END | disposition home or self-care (01) ==
LOC: WWCWWP 10:16
PROVIDERS: ATTEND Surgery
DX: Z53.9 Procedure and treatment not carried out, unspecified reason (principal)

== ENCOUNTER 2020-01-17 22:17 | Emergency (ER) | payer MEDICARE ==
[2020-01-17] MEDS ORDERED: HYDROmorphone 1 MG/ML 1 ML SYRINGE IVP STA (23:10)
[2020-01-17] MEDS ORDERED: SODIUM CHLORIDE 0.9% 1,000 ML IV STA (23:10)
[2020-01-17 23:44] LABS: Anisocytosis Slight; Basophils % (A) 0 %; Eosinophils # (A) 0.1 k/uL (0-0.7); Eosinophils % (A) 1 %; HCT 39.5 % (34.0-46.0); HGB 13.7 gm/dL (11.4-16.0); Lymphocytes # (A) 0.7 k/uL (1.0-4.8); Lymphocytes % (A) 19 %; MCH 29.9 pg (25.0-35.0); MCHC 34.8 g/dL (31.0-37.0); MCV 85.9 fL (80.0-100.0); Mean Platelet Volume 7.8; Monocytes # (A) 0.1 k/uL (0-1.0); Monocytes % (A) 1 %; Neutrophils % (A) 77 %; Platelet Count 127 k/uL (150-450); RDW 19.2 % (11.5-15.5); WBC 3.8 k/uL (3.8-10.6)
--- NOTE | 2020-01-17 23:48 | XR ---
EXAMINATION TYPE: XR chest 2V DATE OF EXAM: 01/17/2020 COMPARISON: 03/19/2010 HISTORY: Vomiting TECHNIQUE: 2 views FINDINGS: Heart and mediastinum are normal. Lungs are clear. Diaphragm is normal. Bony thorax appears normal. Pulmonary vascularity is normal. There is no sign of pneumothorax. IMPRESSION: Normal chest. No adverse change.
[2020-01-17 23:56] LABS: Appearance,Urine Cloudy (Clear); Bilirubin,Urine Negative (Negative); Blood,Urine Negative (Negative); Color,Urine Yellow; Glucose,Urine (UA) Negative (Negative); Hyaline Casts,Urine 4 /lpf (0-2); Ketones,Urine Negative (Negative); Leukocyte Esterase,Urine Moderate (Negative); Mucus,Urine Many /hpf; Nitrite,Urine Negative (Negative); PH, Urine 5.5 (5.0-8.0); Protein,Urine Trace (Negative); RBC,Urine 2 /hpf (0-5); Specific Gravity,Urine 1.031 (1.001-1.035); Squamous Epithelial Cell,Urine 4 /hpf (0-4); Urobilinogen,Urine <2.0 mg/dL (<2.0); WBC,Urine 8 /hpf (0-5)
[2020-01-18 00:13] LABS: ALT 70 U/L (4-34); AST 50 U/L (14-36); African American GFR (CKD) >90 (>60 ml/min/1.73 sqM); Albumin 5.2 g/dL (3.5-5.0); Alkaline Phosphatase 81 U/L (38-126); Amylase 47 U/L (30-110); Anion Gap 12 mmol/L; Blood Urea Nitrogen 18 mg/dL (7-17); Calcium 10.3 mg/dL (8.4-10.2); Carbon Dioxide 22 mmol/L (22-30); Chloride 105 mmol/L (98-107); Glucose 124 mg/dL (74-99); Non-African American GFR(CKD) >90 (>60 ml/min/1.73 sqM); Potassium 4.8 mmol/L (3.5-5.1); Sodium 139 mmol/L (137-145); Total Bilirubin 1.3 mg/dL (0.2-1.3); Total Protein 8.2 g/dL (6.3-8.2)
--- NOTE | 2020-01-18 01:02 | ED ---
General Adult HPI - General Chief complaint: Abdominal Pain Stated complaint: Dehydration Time Seen by Provider: 01/17/20 22:52 Source: patient, RN notes reviewed Mode of arrival: ambulatory Limitations: no limitations - History of Present Illness Initial comments: 44-year-old female presents to the emergency department for a chief complaint of generalized pain. Patient has had pain all over for the past day. Patient has a history of breast and ovarian cancer and is currently receiving chemotherapy with last dose being about one week ago. Patient states that her oncologist FACULTY DEAN told her to come in for some testing including coronavirus. Patient reports that she has not had any fevers at home. She has had some nausea as well as diarrhea and has not had as much of an appetite. She denies any abdominal pain.Patient has no other complaints at this time including shortness of breath, chest pain, abdominal pain, nausea or vomiting, headache, or visual changes. - Related Data Home Medications Medication Instructions Recorded Confirmed Gabapentin [Neurontin] 3,200 mg PO HS 07/31/16 01/11/20 QUEtiapine FUMARATE 100 mg PO HS 07/31/16 01/11/20 Topiramate [Topamax] 100 mg PO HS 05/10/19 01/11/20 OXcarbazepine [Trileptal] 300 mg PO HS 05/11/19 01/11/20 Apixaban [Eliquis] 5 mg PO DAILY 10/25/19 01/11/20 Loratadine [Claritin] 10 mg PO DAILY 10/25/19 01/11/20 Pyridoxine HCl (Vitamin B6) 100 mg PO DAILY 10/25/19 01/11/20 [Vitamin B-6] HYDROcodone/APAP 5-325MG [Neche 1 tab PO DIRECTED PRN 11/09/19 01/11/20 5-325] Allergies Allergy/AdvReac Type Severity Reaction Status Date / Time latex Allergy Unknown Rash/Hives Verified 01/17/20 22:26 Sulfa (Sulfonamide Allergy Unknown Unknown Verified 01/17/20 22:26 Antibiotics) Review of Systems ROS Statement: Those systems with pertinent positive or pertinent negative responses have been documented in the HPI. ROS Other: All systems not noted in ROS Statement are negative. Past Medical History Past Medical History: Seizure Disorder Additional Past Medical History / Comment(s): STATES SEIZURES HARD TO DETECT-SHE STARES. , HX OF FACIAL INJURIES FROM HATCHET., ANEMIA. ovarian and breast CA History of Any Multi-Drug Resistant Organisms: None Reported Past Surgical History: Appendectomy, Section, Cholecystectomy, Hysterectomy Additional Past Surgical History / Comment(s): FACIAL SURGERIES. Past Anesthesia/Blood Transfusion Reactions: No Reported Reaction, Motion Sickness Past Psychological History: Anxiety, Depression Smoking Status: Never smoker Past Alcohol Use History: None Reported Past Drug Use History: None Reported - Past Family History Mother Family Medical History: No Reported History Additional Family Medical History / Comment(s): Mother is alive at age 67 with no major medical problems. Father Additional Family Medical History / Comment(s): Father is alive at age 67 with no major medical problems. Brother(s) Additional Family Medical History / Comment(s): Patient has 1 brother and 1 sister with no major medical problems. Patient has 2 sons and 2 daughters with no major medical problems. General Exam Limitations: no limitations General appearance: alert, in no apparent distress Head exam: Present: atraumatic, normocephalic, normal inspection Eye exam: Present: normal appearance, PERRL, EOMI. Absent: scleral icterus, conjunctival injection, periorbital swelling ENT exam: Present: normal exam, mucous membranes moist Neck exam: Present: normal inspection, full ROM. Absent: tenderness, meningismus, lymphadenopathy Respiratory exam: Present: normal lung sounds bilaterally. Absent: respiratory distress, wheezes, rales, rhonchi, stridor Cardiovascular Exam: Present: regular rate, normal rhythm, normal heart sounds. Absent: systolic murmur, diastolic murmur, rubs, gallop, clicks GI/Abdominal exam: Present: soft, normal bowel sounds. Absent: distended, tenderness, guarding, rebound, rigid Neurological exam: Present: alert Course Vital Signs 01/17/20 22:22 Temperature 99 F Pulse Rate 114 H Respiratory 21 Rate Blood Pressure 128/93 O2 Sat by Pulse 99 Oximetry Medical Decision Making - Medical Decision Making Vitals are stable. Patient is afebrile. CBC and CMP are unremarkable. Urinalysis shows 8 white blood cells however no urinary symptoms. This will be cultured. Patient was given Dilaudid and fluids and had significant improvement in pain. Pain could be related to dehydration as patient has had diarrhea and not been eating as much. Huertas virus is pending. Patient is preferring to go home and his Mckay anymore pain medication. States pain is resolved at this time. She'll be discharged home to follow up with primary care and will return if she has any worsening symptoms. She will call [facility] FACULTY DEAN tomorrow. - Lab Data Result diagrams: 01/17/20 23:34 01/17/20 23:34 Lab Results 01/17/20 01/17/20 01/17/20 Range/Units 23:34 23:34 23:47 WBC 3.8 (3.8-10.6) k/uL RBC 4.60 (3.80-5.40) m/uL Hgb 13.7 (11.4-16.0) gm/dL Hct 39.5 (34.0-46.0) % MCV 85.9 (80.0-100.0) fL MCH 29.9 (25.0-35.0) pg MCHC 34.8 (31.0-37.0) g/dL RDW 19.2 H (11.5-15.5) % Plt Count 127 L (150-450) k/uL Neutrophils % 77 % Lymphocytes % 19 % Monocytes % 1 % Eosinophils % 1 % Basophils % 0 % Neutrophils # 3.0 (1.3-7.7) k/uL Lymphocytes # 0.7 L (1.0-4.8) k/uL Monocytes # 0.1 (0-1.0) k/uL Eosinophils # 0.1 (0-0.7) k/uL Basophils # 0.0 (0-0.2) k/uL Anisocytosis Slight Sodium 139 (137-145) mmol/L Potassium 4.8 (3.5-5.1) mmol/L Chloride 105 (98-107) mmol/L Carbon Dioxide 22 (22-30) mmol/L Anion Gap 12 mmol/L BUN 18 H (7-17) mg/dL Creatinine 0.49 L (0.52-1.04) mg/dL Est GFR (CKD-EPI)AfAm >90 (>60 ml/min/1.73 sqM) Est GFR (CKD-EPI)NonAf >90 (>60 ml/min/1.73 sqM) Glucose 124 H (74-99) mg/dL Calcium 10.3 H (8.4-10.2) mg/dL Magnesium 2.0 (1.6-2.3) mg/dL Total Bilirubin 1.3 (0.2-1.3) mg/dL AST 50 H (14-36) U/L ALT 70 H (4-34) U/L Alkaline Phosphatase 81 (38-126) U/L Total Protein 8.2 (6.3-8.2) g/dL Albumin 5.2 H (3.5-5.0) g/dL Amylase 47 (30-110) U/L Lipase 53 (23-300) U/L Urine Color Yellow Urine Appearance Cloudy H (Clear) Urine pH 5.5 (5.0-8.0) Ur Specific Muse 1.031 (1.001-1.035) Urine Protein Trace H (Negative) Urine Glucose (UA) Negative (Negative) Urine Ketones Negative (Negative) Urine Blood Negative (Negative) Urine Nitrite Negative (Negative) Urine Bilirubin Negative (Negative) Urine Urobilinogen <2.0 (<2.0) mg/dL Ur Leukocyte Esterase Moderate H (Negative) Urine RBC 2 (0-5) /hpf Urine WBC 8 H (0-5) /hpf Ur Squamous Epith Cells 4 (0-4) /hpf Hyaline Casts 4 H (0-2) /lpf Urine Mucus Many H (None) /hpf Disposition Clinical Impression: Generalized pain Disposition: HOME SELF-CARE Condition: Good Instructions (If sedation given, give patient instructions): Dehydration (ED), Pain Management (ED) Additional Instructions: Please drink plenty of fluids. Follow up with primary care in 1-2 days. Return to the emergency room if you have any worsening symptoms. Is patient prescribed a controlled substance at d/c from ED?: No Referrals: Silvio Chong MD [Primary Care Provider] - 1-2 days Time of Disposition: 01:01
[2020-01-18 01:11] VITALS: BP 137/75; PULSE 63; RESP 16; TEMP 97.2
== END 2020-01-18 01:11 | disposition home or self-care (01) ==
LOC: EC 22:17
DX: R10.84 Generalized abdominal pain (principal); R11.0 Nausea; R19.7 Diarrhea, unspecified; E86.0 Dehydration; G40.909 Epilepsy, unspecified, not intractable, without status epilepticus; F32.9 Major depressive disorder, single episode, unspecified; Z20.828 Contact with and (suspected) exposure to other viral communicable diseases; Z85.3 Personal history of malignant neoplasm of breast; Z85.43 Personal history of malignant neoplasm of ovary; Z90.49 Acquired absence of other specified parts of digestive tract; Z90.710 Acquired absence of both cervix and uterus; Z92.21 Personal history of antineoplastic chemotherapy; Z79.01 Long term (current) use of anticoagulants; Z79.899 Other long term (current) drug therapy; Z91.040 Latex allergy status; Z88.2 Allergy status to sulfonamides
CPT/HCPCS: 99284; 96374; 96361; 36415; 80053; 82150; 83690; 83735; 85025; 81001; 71046; U0003; J1170

== ENCOUNTER → 2020-02-17 | Outpatient (CLI) | payer MEDICARE ==
--- NOTE | 2020-02-19 13:25 | PE ---
EXAMINATION TYPE: PET CT fusion skull to thigh DATE OF EXAM: 02/17/2020 COMPARISON: CT pelvis 09/02/2019 Prior PET/CT: None HISTORY: Ovarian cancer, breast cancer TECHNIQUE: Following the intravenous administration of 10.93 mCi of F-18 FDG, whole body images are performed from the skull base to the midthigh. Images are reviewed on the computer in the coronal, a xial, and sagittal planes. Reconstructed rotating images are created on independent workstation and reviewed on the computer. A localization and attenuation correction CT is performed in conjunction with the PET scan. DLP: 5-2.64 mGycm SCAN: Initial Blood glucose: 113 mg/dL Average Mediastinum SUV: 1.56 Average Liver SUV: 2.43 FINDINGS: NECK: No suspicious uptake THORAX: No suspicious uptake ABDOMEN: No suspicious uptake PELVIS: No suspicious uptake OSSEOUS STRUCTURES: No suspicious uptake LOCALIZATION CT: No acute changes identified COMPARISON: No significant interval change. Previous large ovarian cysts are surgically absent at thi s time. No omental caking or peritoneal studding is identified on the localization CT. Monitoring can be performed. IMPRESSION: 1. No suspicious changes to suggest metastatic neoplasm.
== END | disposition home or self-care (01) ==
LOC: RADPETMAIN 11:59
PROVIDERS: ATTEND Internal Medicine Hematology & Oncology
DX: C56.1 Malignant neoplasm of right ovary (principal); C50.411 Malignant neoplasm of upper-outer quadrant of right female breast; Z92.21 Personal history of antineoplastic chemotherapy
CPT/HCPCS: 78815; A9552

== ENCOUNTER → 2020-12-04 | Outpatient (CLI) | payer MEDICARE, OTHER ==
--- NOTE | 2020-12-04 13:32 | CT ---
EXAMINATION TYPE: CT ChestAbdPelvis w con DATE OF EXAM: 12/04/2020 COMPARISON: Head CT 02/17/2020, CT chest 10/20/2019, CT abdomen 08/27/2019 HISTORY: 45-year-old female C56.1, Ovarian and right breast cancer TECHNIQUE: Contiguous axial scanning of the chest, abdomen, and pelvis performed with IV Contrast, pa tient injected with 100 ml mL of Isovue 300. Delayed images through the kidneys were obtained. Huertas l/sagittal reconstructions performed. CT DLP: 2229.70 mGycm Automated exposure control for dose reduction was used. FINDINGS: CHEST: Bilateral breast reconstructions. Posttreatment trabecular and skin thickening of the right breast Heart normal size without pericardial effusion. Aorta normal caliber with conventional arch vessel branching anatomy. No thoracic lymphadenopathy by CT size criteria. A 3 mm peripheral right lower lobe pulmonary nodule, axial image 31 remains unchanged back to 10/20/19 20. No consolidation or pleural effusion. ABDOMEN: No focal liver lesion or biliary ductal dilatation. Portal venous system is patent. Liver enlarged me asuring 20.4 cm, suspect some underlying fatty infiltration. Cholecystectomy clips. Adrenal glands, right kidney, and pancreas within normal limits. A 9 mm cortical hypodensity posterolateral left kidney remains unchanged, probably a mildly complicat ed cyst. Spleen enlarged measuring up to 16.0 cm on coronal series. Postlaparotomy changes are noted along the anterior midline. No dilated small bowel, free fluid, or free air. Scattered nonenlarged mesenteric lymph nodes are present throughout the upper and mid abdomen measuri ng up to 6 cm. No suspicious lymphadenopathy seen. Surgical clips along the right iliac chain. Oral contrast has progressed to the distal sigmoid. Mild overall snowboarding. No pericolic inflammat ory change. PELVIS: Bladder is urine distended. Status post hysterectomy and bilateral salpingo-oophorectomies. No abnorm al fluid collection in the pelvis. Some nonenlarged lymph nodes along the external iliac chain measur ing up to 7 mm are unchanged. No pelvic lymphadenopathy seen. BONES: No osseous destructive process. IMPRESSION: 1. STATUS POST BILATERAL BREAST RECONSTRUCTIONS, POST THERAPY CHANGES ON THE RIGHT. ALSO, PRIOR LAPAR OTOMY, STATUS POST HYSTERECTOMY AND BILATERAL SALPINGO-OOPHORECTOMIES. 2. NO EVIDENCE FOR RECURRENT OR METASTATIC DISEASE. 3. HEPATOSPLENOMEGALY (LIVER 20.4 CM AND SPLEEN 16.0 CM). SPLEEN MEASURED UP TO 17.2 CM ON 08/27/2019. LIVER SIZE IS STABLE.
== END | disposition home or self-care (01) ==
LOC: RADCTMAIN 09:58
PROVIDERS: ATTEND Internal Medicine Hematology & Oncology
DX: C50.911 Malignant neoplasm of unspecified site of right female breast (principal); R16.2 Hepatomegaly with splenomegaly, not elsewhere classified; Z85.43 Personal history of malignant neoplasm of ovary
CPT/HCPCS: 71260; 74177; Q9967

== ENCOUNTER → 2021-06-08 | Outpatient (CLI) | payer MEDICARE ==
--- NOTE | 2021-06-08 15:00 | MR ---
EXAMINATION TYPE: MR brain wo/w con DATE OF EXAM: 06/08/2021 COMPARISON: HISTORY: Malignant neoplasm of brain, breast cancer, numbness right middle fingers TECHNIQUE: Multiplanar, multisequence images of the brain and brainstem is performed without and with IV contras t, utilizing 12 mL intravenous Gadavist . FINDINGS: Diffusion weighted images demonstrate no evidence of a recent infarct or other diffusion ab normality. There is no extra-axial fluid collection or significant white matter signal abnormality. The ventricular system and cisternal spaces are normal in size and appearance. The brain volume is age appropriate. Midline structures demonstrate normal morphology. The craniocervical junction appears within normal limits. Post contrast images demonstrate no abnormal enhancement. The dural venous sinuses appear pa tent. The visualized sinuses are remarkable for mucosal disease within the maxillary sinus, ethmoid a ir cells and the globes are intact. IMPRESSION: Sinus disease. No evident metastasis.
== END | disposition home or self-care (01) ==
LOC: RADMRIMAIN 09:58
PROVIDERS: ATTEND Psychiatry & Neurology Neurology
DX: C50.919 Malignant neoplasm of unspecified site of unspecified female breast (principal); J32.8 Other chronic sinusitis
CPT/HCPCS: 70553; A9585

== ENCOUNTER → 2021-12-20 | Outpatient (CLI) | payer MEDICARE ==
--- NOTE | 2021-12-20 09:39 | USB ---
Reason for Exam: Clinical finding. Patient History: Menarche at age 10. First Full-Term at age 17. Left ovary removed at age 44. Right ovary removed at age 44. Hysterectomy at age 44. Postmenopausal. Ovarian cancer. Breast cancer, age 44. 10/05/2019, Malignant Core Biopsy on the right side. 10/05/2019, Malignant Core Biopsy on the right side. Technique: Method: Targeted. Prior Study Comparison: 10/04/2019 Bilateral Diagnostic Mammogram, [facility]. 10/05/2019 Right Diagnostic Mammogram, [facility]. Findings: The medial section of the breast of the left breast was scanned. Finding 1: Simple cyst. Laterality: Left. Palpable Abnormality seen. Size 6 x 7 x 6 mm. 10 O'clock Quadrant: Upper inner. 6 cm cm from nipple. Shape: Circumscribed. Margin: Circumscribed (Well-Defined or Sharply-Defined). Finding 2: Simple cyst. Laterality: Left. Size 7 x 7 x 6 mm. 10 O'clock Quadrant: Upper inner. 6 cm cm from nipple. Shape: Circumscribed. Margin: Circumscribed (Well-Defined or Sharply-Defined). No solid or cystic masses are identified.. Overall Assessment: Benign, BI-RAD 2 Management: Diagnostic Mammogram of both breasts in 1 year. A clinical breast exam by your physician is recommended on an annual basis and results should be correlated with mammographic findings. Electronically signed and approved by: Jamaal Forbes M.D. Radiologis
== END | disposition home or self-care (01) ==
LOC: RADUSWWP 09:01
PROVIDERS: ATTEND Internal Medicine Hematology & Oncology
DX: N60.01 Solitary cyst of right breast (principal); Z85.3 Personal history of malignant neoplasm of breast

== ENCOUNTER → 2022-01-10 | Outpatient (CLI) | payer MEDICARE ==
[2022-01-10 13:49] LABS: African American GFR (CKD) >90 (>60 ml/min/1.73 sqM); Blood Urea Nitrogen 12 mg/dL (7-17); Non-African American GFR(CKD) >90 (>60 ml/min/1.73 sqM)
--- NOTE | 2022-01-10 15:45 | CT ---
EXAMINATION TYPE: CT ChestAbdPelvis w con CT DLP: 3158.1 mGycm, Automated exposure control for dose reduction was used. DATE OF EXAM: 01/10/2022 3:14 PM COMPARISON: CT 12/04/2020, PET/CT 02/17/2020 CLINICAL INDICATION:Female, 46 years old with history of C56.1 Ovarian Cancer; Technique: Multiple axial images of the chest, abdomen, and pelvis were obtained. Two-dimensional cor onal and sagittal reconstructions were obtained. Contrast used:70ml mL of Isovue 300 with IV Contrast, Oral contrast used: with Oral Contrast Findings: CHEST: LUNGS/ PLEURA: The lung parenchyma appears unremarkable. AIRWAY: Patent and unremarkable.. HEART: Size within normal limits. MEDIASTINUM: No gross evidence of adenopathy. VASCULATURE: No aortic aneurysm. MUSCULOSKELETAL: No acute osseous abnormalities. SOFT TISSUES/LYMPH NODES: Bilateral breast implants are present and appear intact. LOWER NECK: No significant findings. ABDOMEN: ABDOMEN LIVER: Diffusely hypoattenuating parenchyma. GALLBLADDER AND BILE DUCTS: The gallbladder is surgically absent. PANCREAS: Unremarkable. SPLEEN: Unremarkable. ADRENAL GLANDS: Unremarkable. KIDNEYS AND URETERS: No evidence of hydronephrosis or renal calculus. The ureters are unremarkable. PELVIS BLADDER: Unremarkable REPRODUCTIVE: The uterus is surgically absent. ABDOMEN & PELVIS STOMACH AND BOWEL: No evidence of bowel obstruction. PERITONEUM: No evidence of pneumoperitoneum or free fluid. VASCULATURE: No evidence of aortic aneurysm. MUSCULOSKELETAL: No acute osseous abnormalities LYMPH NODES: No gross evidence for lymphadenopathy. SOFT TISSUE/ABDOMINAL WALL: Postsurgical changes anterior abdominal wall. IMPRESSION: 1. No evidence for recurrence or metastatic disease. 2. Hepatic steatosis.
== END | disposition home or self-care (01) ==
LOC: RADPROMAIN 13:08
PROVIDERS: ATTEND Internal Medicine Hematology & Oncology
DX: C56.1 Malignant neoplasm of right ovary (principal); K76.0 Fatty (change of) liver, not elsewhere classified
CPT/HCPCS: 82565; 84520; 71260; 74177; 36415; Q9967

== ENCOUNTER → 2023-07-22 | Outpatient (CLI) | payer MEDICARE, OTHER ==
--- NOTE | 2023-07-24 12:18 | CT ---
EXAMINATION TYPE: CT ChestAbdPelvis w con DATE OF EXAM: 07/22/2023 INDICATION: f/u ovarian ca COMPARISON: 01/10/2022 CT DLP: 1774 mGycm CONTRAST: Performed with Oral Contrast and with IV Contrast, patient injected with 100ml mL of Isovue 300. TECHNIQUE: Axial images at 5 mm thick sections. Reconstructed images in the coronal plane. Delayed images through the kidneys. FINDINGS: CT CHEST: Bilateral breast prostheses are present. Portion of the thyroid visualized is normal. No suspicious lung nodules or focal infiltrates are present. No enlarged mediastinal or hilar adenopathy is evident. The ascending aorta diameter at the level of the main pulmonary artery is 3.4 cm. The main pulmonary artery diameter at the bifurcation is 2.[address] ABDOMEN: Liver: Is moderate fatty infiltration of the liver. Spleen: There is a 4.3 cm cyst measuring 14 Hounsfield units at the inferior pole of the spleen. This is new. Recommend ultrasound for confirmation. Pancreas: Normal Adrenal glands: The adrenal glands are normal. Gallbladder: Surgically absent Kidneys: No masses are evident. No hydronephrosis is present. No cysts are present. Delayed images were obtained through the kidneys, which remain unremarkable. Aorta: Normal Inferior vena cava: Normal. CT PELVIS: Loops of bowel within the abdomen and pelvis are normal. Moderate fecal retention is through the dist al colon. There are loops of bowel which are incompletely distended or lack oral contrast limiting their evaluation. Appendix: Not identified. No dilated tubular structure or inflammatory changes evident. Urinary bladder: Normal. Genitourinary structures: Uterus and ovaries are not identified. No suspicious adnexal cysts or free fluid is evident. No omental caking is evident. Osseous structures: No suspicious lytic or sclerotic lesions. IMPRESSION: 1. New Splenic cyst. Recommend ultrasound for additional evaluation. 2. Moderate fatty infiltration of the liver. 3. No additional suspicious changes to suggest recurrent or metastatic neoplasm.
== END | disposition home or self-care (01) ==
LOC: RADCTMAIN 12:25
PROVIDERS: ATTEND Internal Medicine Hematology & Oncology
DX: D73.4 Cyst of spleen (principal); K76.0 Fatty (change of) liver, not elsewhere classified; C56.1 Malignant neoplasm of right ovary; C50.411 Malignant neoplasm of upper-outer quadrant of right female breast; I26.99 Other pulmonary embolism without acute cor pulmonale; Z71.3 Dietary counseling and surveillance; Z14.8 Genetic carrier of other disease
CPT/HCPCS: 71260; 74177; Q9967

== ENCOUNTER → 2023-08-21 | Outpatient (CLI) | payer MEDICARE, OTHER ==
--- NOTE | 2023-08-23 10:39 | PE ---
EXAMINATION TYPE: PET CT fusion skull to thigh DATE OF EXAM: 08/21/2023 CLINICAL INDICATION:Female, 48 years old with history of C54.1 Ovarian ca C50.411 BREAST CANCER; TECHNIQUE: Following the intravenous administration of 8.03 mCi of F-18 FDG, whole body images are performed from the skull base to the midthigh. Images are reviewed on the computer in the coronal, a xial, and sagittal planes. Reconstructed rotating images are created on independent workstation and reviewed on the computer. A non-contrast CT is performed in conjunction with the PET scan. Glucose level 95 mg/dL CT DLP: 293 mGycm, Automated exposure control for dose reduction was used. COMPARISON: CT 07/22/2023, PET/CT 02/17/2020, FINDINGS: Mediastinal SUV mean is 2.5. Hepatic parenchyma SUV mean is 2.7. SKULL BASE AND NECK: No suspicious radiotracer activity. CHEST, MEDIASTINUM, AND HILAR REGION: * Abnormal uptake within the left axilla max SUV 72.7 within a lymph node with fatty hilum. Which parikh sn't changed from prior PET/CT and morphology. Additionally there is tubular/linear nodular uptake ex tending along the vascular and the left upper extremity. * Additional area thought to be within the muscle max SUV 8.11. ABDOMEN AND PELVIS: * 2 fluid density areas in the spleen measuring 23 and 43 mm with fluid density on Hounsfield units are present. No definitive uptake seen within these lesions. * Abnormal uptake within the sigmoid colon max SUV 9.8 with soft tissue adjacent to the colon and/or in the wall series 3 image 208 measuring up to 19 mm and lymph nodes in the mesentery which are prom inent series 3 image 2 4 MUSCULOSKELETAL STRUCTURES: No suspicious radiotracer activity. OTHER CT: Bilateral breast implants appear intact. Hepatic steatosis. Gallbladder surgically absent. Fat-containing umbilical hernia. Scattered colonic diverticula. Heart is mildly enlarged for size. IMPRESSION: 1. Focal uptake within the sigmoid colon or immediately adjacent to the wall suspicious for malignan cy. 2. No definitive uptake within the splenic lesions. 3. Left axillary lymph node with extremely high uptake along with linear/nodular uptake along the ex pected course omental vessels into the left upper extremity findings may represent phlebitis , attent ion on follow-up imaging.
== END | disposition home or self-care (01) ==
LOC: RADPETMAIN 09:36
PROVIDERS: ATTEND Internal Medicine Hematology & Oncology
DX: C56.1 Malignant neoplasm of right ovary (principal); C50.411 Malignant neoplasm of upper-outer quadrant of right female breast
CPT/HCPCS: 78815; A9552

== ENCOUNTER 2023-09-22 10:57 | Day surgery (SDC) | payer MEDICARE, OTHER ==
[~2023-09-22 10:57] MED LIST: LIDOCAINE 1% (10MG/ML) FOR IV START INTRADERMA PRN
[2023-09-22 11:51] VITALS: TEMP 97
[2023-09-22] MEDS: LACTATED RINGERS 1,000 ML IV SCH (11:52)
[2023-09-22] MEDS ORDERED: PROPOFOL 10 MG/ML 20 ML VIAL IV ONE (12:31)
--- NOTE | 2023-09-22 13:10 | P.PCN ---
Date of Procedure: 09/22/23 Procedure(s) Performed: BRIEF HISTORY: Patient is a 48-year-old pleasant white female scheduled for an elective colonoscopy as a part of evaluation of abnormal CAT scan that showed increased uptake in the sigmoid colon. Patient denies any rectal bleeding or change in bowel habits. PROCEDURE PERFORMED: Colonoscopy with biopsy, snare polypectomy and tattooing with Blanka ink PREOPERATIVE DIAGNOSIS: Abnormal PET scan. IV sedation per Anesthesia. PROCEDURE: After informed consent was obtained, the patient, was brought into the endoscopy unit. IV sedation was administered by Anesthesia under continuous monitoring. Digital rectal examination was normal. Initially the Olympus CF-160 flexible video colonoscope was then inserted in the rectum, gradually advanced into the cecum without any difficulty. Careful examination was performed as the scope was gradually being withdrawn. Ileocecal valve and the appendiceal orifice were visualized and appeared normal. Prep was excellent. Mucosa of the cecum, ascending colon, transverse colon, descending colon, appeared normal. In the proximal sigmoid colon at 38 cm from the anal verge there was a 3 cm ulcerated mass identified and multiple biopsies were done from this area followed by tattooing with Blanka ink. In the distal sigmoid colon at 25 cm from the anal was there was a 1 cm polyp that was removed by snare polypectomy. The rectum appeared normal. Retroflexion was performed in the rectum and no lesions were seen. The patient tolerated the procedure well. IMPRESSION: 3-4 cm ulcerated mass in the proximal sigmoid colon at 38 cm from the anal verge status post antral biopsies followed by tattooing with Blanka ink 1 cm distal sigmoid: Polyp status post polypectomy RECOMMENDATIONS: Findings of this examination were discussed with the patient as well as a family.. she was advised to follow with the biopsy results and follow with Dr. Millard.
[2023-09-22 13:41] VITALS: BP 137/78; PULSE 78; RESP 18
== END 2023-09-22 13:55 | disposition home or self-care (01) ==
LOC: ORWHC2ENDO 10:57
PROVIDERS: ATTEND Internal Medicine Gastroenterology
DX: C18.7 Malignant neoplasm of sigmoid colon (principal); D12.5 Benign neoplasm of sigmoid colon; F41.9 Anxiety disorder, unspecified; F32.A Depression, unspecified; G40.909 Epilepsy, unspecified, not intractable, without status epilepticus; Z91.040 Latex allergy status; Z88.2 Allergy status to sulfonamides; Z85.3 Personal history of malignant neoplasm of breast; Z79.899 Other long term (current) drug therapy
CPT/HCPCS: 88305; 88342; 88341; 45380; 45385; 45381; J2704

== ENCOUNTER 2023-12-25 08:03 | Day surgery (SDC) | payer MEDICARE, OTHER ==
[~2023-12-25 08:03] MED LIST changes: +HYDROmorphone 0.5 MG/0.5 ML SYRINGE IVP PRN; -LIDOCAINE 1% (10MG/ML) FOR IV START INTRADERMA PRN; +MIDAZOLAM 2 MG/2 ML VIAL IV PRN; +Pre Op ABX Message 1 EACH MISC MISCELLANE ONE; +SCOPOLAMINE 1 MG/72 HR PATCH TRANSDERM ONE
[2023-12-25 08:56] VITALS: TEMP 97.3
[2023-12-25] MEDS: ACETAMINOPHEN TAB 500 MG TAB PO PRN (09:07)
[2023-12-25] MEDS: ONDANSETRON 4 MG/2 ML VIAL IVP ONE (09:07)
[2023-12-25] MEDS: DEXAMETHASONE SOD PHOSPHATE 4 MG/ML 1 ML VIAL IV ONE (09:08)
[2023-12-25] MEDS: LACTATED RINGERS 1,000 ML IV SCH (09:08)
[2023-12-25] MEDS: HEPARIN SODIUM,PORCINE 5,000 UNIT/ML 1 ML VIAL SQ PRN (09:08)
[2023-12-25] MEDS: IV FLUID CONTINUATION 1,000 ML IV ONE (09:27)
[2023-12-25] MEDS ORDERED: ceFAZolin 3 GM in SODIUM CHLORIDE 0.9% 100 ML IVPB ONE (09:39)
[2023-12-25] MEDS ORDERED: PHENYLEPHRINE-0.9% NACL SYG 1,000 MCG/10 ML SYRINGE ONE (10:03)
[2023-12-25] MEDS ORDERED: LIDOCAINE 1% INJ 10MG/ML (20 ML MDV) ONE (10:03)
[2023-12-25] MEDS ORDERED: fentaNYL (PF) 50 MCG/ML 2 ML AMP ONE (10:03)
[2023-12-25] MEDS ORDERED: MIDAZOLAM 2 MG/2 ML VIAL ONE (10:03)
[2023-12-25] MEDS ORDERED: PROPOFOL 10 MG/ML 20 ML VIAL IV ONE (10:03)
[2023-12-25] MEDS: SODIUM CHLORIDE 0.9% 50 ML with ceFAZolin 2,000 MG IV ONE (10:08)
--- NOTE | 2023-12-25 10:13 | P.GSHP ---
History of Present Illness H&P Date: 12/25/23 Chief Complaint: Ovarian cancer 48-year-old female with history of breast and ovarian cancer. Patient has had recent recurrence of her ovarian cancer and here today for Port-A-Cath placement. History of previous bilateral mastectomy. She has not had a port previously. Planning to use the port for chemotherapy on Thursday. Past Medical History Past Medical History: Cancer, Seizure Disorder, Skin Disorder Additional Past Medical History / Comment(s): STATES SEIZURES HARD TO DETECT-SHE STARES. , HX OF FACIAL INJURIES FROM [place].,hx of ANEMIA. ovarian and breast, colon CA unk when last seizure was has wound vac in place to abdomniual incision History of Any Multi-Drug Resistant Organisms: None Reported Past Surgical History: Appendectomy, Bowel Resection, Breast Surgery, Section, Cholecystectomy, Hysterectomy Additional Past Surgical History / Comment(s): FACIAL SURGERIES. tameka mastectomy, colon resection Past Anesthesia/Blood Transfusion Reactions: No Reported Reaction, Motion Sickness Smoking Status: Never smoker - Past Family History Mother Family Medical History: No Reported History Additional Family Medical History / Comment(s): Mother is alive at age 67 with no major medical problems. Father Additional Family Medical History / Comment(s): Father is alive at age 67 with no major medical problems. Brother(s) Additional Family Medical History / Comment(s): Patient has 1 brother and 1 sister with no major medical problems. Patient has 2 sons and 2 daughters with no major medical problems. Medications and Allergies Home Medications Medication Instructions Recorded Confirmed Type Gabapentin [Neurontin] 3,200 mg PO HS 07/31/16 12/23/23 History QUEtiapine FUMARATE 150 mg PO HS 07/31/16 12/23/23 History Topiramate [Topamax] 100 mg PO HS 05/10/19 12/23/23 History OXcarbazepine [Trileptal] 900 mg PO HS 05/11/19 12/23/23 History Venlafaxine HCl 3 tab PO HS 09/21/23 12/25/23 History Allergies Allergy/AdvReac Type Severity Reaction Status Date / Time latex Allergy Unknown Rash/Hives Verified 12/25/23 08:36 Sulfa (Sulfonamide Allergy Unknown Unknown Verified 12/25/23 08:36 Antibiotics) Surgical - Exam Vital Signs Temp Pulse Resp BP Pulse Ox 97.3 F L 82 16 121/67 96 12/25/23 08:53 12/25/23 08:53 12/25/23 08:53 12/25/23 08:53 12/25/23 08:53 Physical exam: General: Well-developed, well-nourished HEENT: Normocephalic, sclerae nonicteric Abdomen: Nontender, nondistended, open wound present with wound VAC in place Extremities: No edema Neuro: Alert and oriented Assessment and Plan (1) Ovarian cancer Narrative/Plan: 48-year-old female with ovarian cancer. Will proceed with Port-A-Cath placement at this time. Risks of bleeding, infection, DVT, pneumothorax, catheter malfunction, anesthesia related complications were discussed. The patient understands and wishes to proceed. Current Visit: Yes Status: Acute Code(s): C56.9 - MALIGNANT NEOPLASM OF UNSPECIFIED OVARY SNOMED Code(s): 077394835
[2023-12-25] MEDS: HEPARIN SODIUM,PORCINE 100 UNIT/ML 5 ML VIAL IV ONE (10:38)
[2023-12-25] MEDS: LIDOCAINE (PF) 10 MG/ML 2 ML VIAL SQ ONE (10:38)
--- NOTE | 2023-12-25 11:37 | P.OP ---
Date of Procedure: 12/25/23 Procedure(s) Performed: PREOPERATIVE DIAGNOSIS: Ovarian cancer POSTOPERATIVE DIAGNOSIS: Same PROCEDURE: Port-A-Cath placement with fluoroscopic and ultrasound guidance SURGEON: Russ EBL: 20 cc ANESTHESIA: General COMPLICATIONS: None OPERATIVE PROCEDURE: Patient was brought and placed on the operative table in the supine position. The patient was placed under general anesthesia at that time. The chest and neck were prepped and draped in usual sterile fashion. The ultrasound probe was used to identify the location of the right internal jugular vein. The skin was localized with lidocaine. The Seldinger needle was advanced into the IJ under ultrasound guidance. The wire was advanced through the needle under fluoroscopic guidance into the superior vena cava. A port pocket was created in the right infraclavicular location. The catheter was tunneled from the wire entrance site to the port pocket. The port was then connected to the catheter. The dilator introducer was threaded over the guidewire. The guidewire and dilator were then removed. The catheter was advanced through the introducer and introducer was then removed. The tip was seen to be in the right atrial junction via fluoroscopy. A picture of the radiograph showing the tip of the catheter was taken. Port was flushed with both saline and a Hep-Lock solution. There was good flow both in and out of the port. The port was sutured in underlying tissues using 3-0 silk sutures. The subcutaneous tissues were reapproximated using 3-0 Vicryl sutures and the skin at both locations using 4-0 Monocryl sutures. Skin glue and sterile dressings then applied. DISPOSITION: Stable to recovery room
--- NOTE | 2023-12-25 11:55 | XR ---
EXAMINATION TYPE: XR chest 1V portable DATE OF EXAM: 12/25/2023 11:30 AM CLINICAL INDICATION:Female, 48 years old with history of placement COMPARISON: Chest radiographs from 01/17/2020 TECHNIQUE: XR chest 1V portable Frontal view of the chest. FINDINGS: Lungs/Pleura: There is no evidence of pleural effusion, focal consolidation, or pneumothorax. Pulmonary vascularity: Unremarkable. Heart/mediastinum: Cardiomediastinal silhouette is enlarged and stable. Musculoskeletal: No acute osseous pathology. Other findings: None Lines/Tubes: [id number] projecting over the right hemithorax with distal tip at the cavoatrial junction. IMPRESSION: No acute cardiopulmonary disease/process.
[2023-12-25] MEDS ORDERED: ACETAMINOPHEN TAB 325 MG TAB PO PRN (12:10)
[2023-12-25] MEDS ORDERED: NALOXONE 0.4 MG/ML 1 ML VIAL IV PRN (12:10)
[2023-12-25] MEDS ORDERED: HYDROcodone/APAP 5-325MG 1 EACH TAB PO PRN (12:10)
[2023-12-25 12:33] VITALS: BP 112/77; PULSE 87; RESP 18
--- NOTE | 2023-12-25 12:50 | FL ---
EXAMINATION TYPE: FL guided central line placemt Intraoperative/procedural fluoroscopic services were provided. Total fluoroscopy time is 10.6 seconds with a total of 2 submitted images to PACS. Please see the operative/procedural note for further details. DAP: 0.9021 Gycm2
== END 2023-12-25 12:47 | disposition home or self-care (01) ==
LOC: OR 08:03
PROVIDERS: ATTEND Surgery
DX: Z45.2 Encounter for adjustment and management of vascular access device (principal); C56.1 Malignant neoplasm of right ovary; G40.909 Epilepsy, unspecified, not intractable, without status epilepticus; G43.909 Migraine, unspecified, not intractable, without status migrainosus; Z85.3 Personal history of malignant neoplasm of breast; Z90.13 Acquired absence of bilateral breasts and nipples; Z85.038 Personal history of other malignant neoplasm of large intestine; Z88.2 Allergy status to sulfonamides; Z91.040 Latex allergy status; Z79.899 Other long term (current) drug therapy
CPT/HCPCS: 77001; 71045; 36561; C1788; J2250; J2001 ×2; J1644; J1642; J1100; J2405; J0690; J3010; J2704; J2371

== ENCOUNTER 2024-03-30 18:39 | Emergency (ER) | payer MEDICARE, OTHER ==
[2024-03-30 18:49] VITALS: TEMP 100.7
--- NOTE | 2024-03-30 19:10 | ED ---
Fever HPI - General Chief Complaint: Skin/Abscess/Foreign Body Stated Complaint: abcess Time Seen by Provider: 03/30/24 18:55 Source: patient, RN notes reviewed, old records reviewed Mode of arrival: ambulatory Limitations: no limitations - History of Present Illness Initial Comments: This is a 48-year-old female to the ER today for evaluation of fever, patient does have significant swelling and redness to the abdomen with wound VAC and healing of secondary intent, patient has had increased area of redness on the left side of her bellybutton which is causing her severe pain currently she presents today for fever on chemotherapy MD Complaint: fever -: hour(s) Temperature Source: subjective Context: multiple patients with similar symptoms, recent procedure Associated Symptoms: chills, myalgias Treatments Prior to Arrival: none - Related Data Home Medications Medication Instructions Recorded Confirmed Gabapentin [Neurontin] 3,200 mg PO HS 07/31/16 12/23/23 QUEtiapine FUMARATE 150 mg PO HS 07/31/16 12/23/23 Topiramate [Topamax] 100 mg PO HS 05/10/19 12/23/23 OXcarbazepine [Trileptal] 900 mg PO HS 05/11/19 12/23/23 Venlafaxine HCl 3 tab PO HS 09/21/23 12/25/23 Previous Rx's Medication Instructions Recorded oxyCODONE HCL [OxyIR] 5 mg PO Q6H PRN 3 Days #6 tab 12/25/23 clindamycin HCL [Cleocin] 300 mg PO Q6HR #28 cap 03/30/24 Allergies Allergy/AdvReac Type Severity Reaction Status Date / Time latex Allergy Unknown Rash/Hives Verified 12/25/23 08:36 Sulfa (Sulfonamide Allergy Unknown Unknown Verified 12/25/23 08:36 Antibiotics) carboplatin AdvReac Anaphylaxis Verified 03/30/24 18:50 Review of Systems ROS Statement: Those systems with pertinent positive or pertinent negative responses have been documented in the HPI. ROS Other: All systems not noted in ROS Statement are negative. Past Medical History Past Medical History: Cancer, Seizure Disorder, Skin Disorder Additional Past Medical History / Comment(s): STATES SEIZURES HARD TO DETECT-SHE STARES. , HX OF FACIAL INJURIES FROM [place].,hx of ANEMIA. ovarian and breast, colon CA unk when last seizure was has wound vac in place to abdomniual incision History of Any Multi-Drug Resistant Organisms: None Reported Past Surgical History: Appendectomy, Bowel Resection, Breast Surgery, Section, Cholecystectomy, Hysterectomy Additional Past Surgical History / Comment(s): FACIAL SURGERIES. tameka mastectomy, colon resection Past Anesthesia/Blood Transfusion Reactions: No Reported Reaction, Motion Sickness Past Psychological History: Anxiety, Depression Smoking Status: Never smoker - Past Family History Mother Family Medical History: No Reported History Additional Family Medical History / Comment(s): Mother is alive at age 67 with no major medical problems. Father Additional Family Medical History / Comment(s): Father is alive at age 67 with no major medical problems. Brother(s) Additional Family Medical History / Comment(s): Patient has 1 brother and 1 sister with no major medical problems. Patient has 2 sons and 2 daughters with no major medical problems. General Exam - General Exam Comments Initial Comments: Anterior abdominal wall area of redness and tenderness Limitations: no limitations General appearance: alert, in no apparent distress Head exam: Present: atraumatic, normocephalic, normal inspection Eye exam: Present: normal appearance, PERRL, EOMI. Absent: scleral icterus, con junctival injection, periorbital swelling ENT exam: Present: normal exam, mucous membranes moist Neck exam: Present: normal inspection. Absent: tenderness, meningismus, lymphadenopathy Respiratory exam: Present: normal lung sounds bilaterally. Absent: respiratory distress, wheezes, rales, rhonchi, stridor Cardiovascular Exam: Present: regular rate, normal rhythm, normal heart sounds. Absent: systolic murmur, diastolic murmur, rubs, gallop, clicks GI/Abdominal exam: Present: soft, normal bowel sounds. Absent: distended, tenderness, guarding, rebound, rigid Extremities exam: Present: normal inspection, full ROM, normal capillary refill. Absent: tenderness, pedal edema, joint swelling, calf tenderness Back exam: Present: normal inspection Neurological exam: Present: alert, oriented X3, CN II-XII intact Psychiatric exam: Present: normal affect, normal mood Skin exam: Present: warm, dry, intact, normal color. Absent: rash Course Vital Signs 03/30/24 03/30/24 18:45 21:00 Temperature 100.7 F H Pulse Rate 91 98 Respiratory 26 H 20 Rate Blood Pressure 120/99 113/75 O2 Sat by Pulse 97 97 Oximetry - Reevaluation(s) Reevaluation #1: 03/30/24 19:09 Medical records reviewed Reevaluation #4: Was pt. sent in by a medical professional or institution (JACQUELINE Galdamez, [employer], urgent care, hospital, or retirement...) When possible be specific @ -no Did you speak to anyone other than the patient for history (EMS, parent, family, police, friend...)? What history was obtained from this source @ -no Did you review nursing and triage notes (agree or disagree)? Why? @ -agree Are old charts reviewed (outside hosp., previous admission, EMS record, old EKG, old radiological studies, urgent care reports/EKG's, retirement records)? Report findings @ -yes Differential Diagnosis (chest pain, altered mental status, abdominal pain women, abdominal pain men, vaginal bleeding, weakness, fever, dyspnea, syncope, headache, dizziness, GI bleed, back pain, seizure, CVA, palpatations, mental health, musculoskeletal)? @ -prior EKG interpreted by me (3pts min.). @ -yes X-rays interpreted by me (1pt min.). @ -yes negative for acute disease CT interpreted by me (1pt min.). @ -no U/S interpreted by me (1pt. min.). @ -no What testing was considered but not performed or refused? (CT, X-rays, U/S, labs)? Why? @ -none What meds were considered but not given or refused? Why? @ -none Did you discuss the management of the patient with other professionals (professionals i.e. JACQUELINE Galdamez, [employer], lab, RT, psych nurse, social worker psychiatric, piano professor, teacher, animal services officer, pillowcase folder)? Give summary @ -no Was smoking cessation discussed for >3mins.? @ -no Was critical care preformed (if so, how long)? @ -no Were there social determinants of health that impacted care today? How? (Homelessness, low income, unemployed, alcoholism, drug addiction, transportation, low edu. Level, literacy, decrease access to med. care, [facility], rehab)? @ -none Was there de-escalation of care discussed even if they declined (Discuss DNR or withdrawal of care, Hospice)? DNR status @ -no What co-morbidities impacted this encounter? (DM, HTN, Smoking, COPD, CAD, Cancer, CVA, ARF, Chemo, Hep., AIDS, mental health diagnosis, sleep apnea, morbid obesity)? @ -none Was patient admitted / discharged? Hospital course, mention meds given and route, prescriptions, significant lab abnormalities, going to OR and other pertinent info. @ - Undiagnosed new problem with uncertain prognosis? @ -no Drug Therapy requiring intensive monitoring for toxicity (Heparin, Nitro, Insulin, Cardizem)? @ -no Were any procedures done? @ -no Diagnosis/symptom? @ - Acute, or Chronic, or Acute on Chronic? @ -Acute Uncomplicated (without systemic symptoms) or Complicated (systemic symptoms)? @ -Complicated Side effects of treatment? @ -no Exacerbation, Progression, or Severe Exacerbation? @ -exacerbation Poses a threat to life or bodily function? How? (Chest pain, [place], [place], pneumonia, PE, COPD, DKA, ARF, appy, cholecystitis, CVA, Diverticulitis, Homicidal, Suicidal, threat to staff... and all critical care pts) @ -yes Reevaluation #5: Differential Fever: Pneumonia, viral URI, endocarditis, myocarditis, pericarditis, otitis, sinusitis, peritonsillar Abscess, retropharyngeal Abscess, epiglottitis, peritonitis, appendicitis, Monae cystitis, diverticulitis, hepatitis, colitis, UTI, PID, TOA, pyelonephritis, prostatitis, epididymitis, meningitis, encephalitis, pulmonary embolism, CVA, thyroid storm, pancreatitis, adrenal crisis, cavernous sinus thrombosis, this is not meant to be an all-inclusive list. Procedures - Incision & Drainage Consent Obtained: verbal consent Site: abdomen Anesthetic Used: lidocaine 1%, lidocaine 2% Sterile Field Used?: Yes Scalpel Used: #11 Ultrasound used: No Needle Aspiration Performed?: No Irrigation Performed?: No I&D Drainage Obtained: Pus Loculation Noted: probing needed to break Insertion of drain: Yes Culture Obtained?: No Medical Decision Making - Medical Decision Making 48 female to ER with fever and cancer. No acute cause of fever found does have anterior abdominal abscess abscess is incised and drained, cleaned and patient can be discharged home - Lab Data Result diagrams: 03/30/24 20:48 03/30/24 20:48 Lab Results 10/08/2203/30/24 03/30/24 Range/Units 20:33 20:48 20:48 WBC 4.5 (3.8-10.6) k/uL RBC 4.16 (3.80-5.40) m/uL Hgb 11.5 (11.4-16.0) gm/dL Hct 33.8 L (34.0-46.0) % MCV 81.2 (80.0-100.0) fL MCH 27.5 (25.0-35.0) pg MCHC 33.9 (31.0-37.0) g/dL RDW 17.0 H (11.5-15.5) % Plt Count 109 L (150-450) k/uL MPV 8.2 Neutrophils % 69 % Lymphocytes % 24 % Monocytes % 3 % Eosinophils % 0 % Basophils % 0 % Neutrophils # 3.1 (1.3-7.7) k/uL Lymphocytes # 1.1 (1.0-4.8) k/uL Monocytes # 0.2 (0-1.0) k/uL Eosinophils # 0.0 (0-0.7) k/uL Basophils # 0.0 (0-0.2) k/uL Anisocytosis Slight Sodium 135 L (137-145) mmol/L Potassium 3.5 (3.5-5.1) mmol/L Chloride 100 (98-107) mmol/L Carbon Dioxide 25 (22-30) mmol/L Anion Gap 10 mmol/L BUN 9 (7-17) mg/dL Creatinine 0.50 L (0.52-1.04) mg/dL Est GFR (CKD-EPI)AfAm >90 (>60 ml/min/1.73 sqM) Est GFR (CKD-EPI)NonAf >90 (>60 ml/min/1.73 sqM) Glucose 136 H (74-99) mg/dL Plasma Lactic Acid Wilman (0.7-2.0) mmol/L Calcium 9.2 (8.4-10.2) mg/dL Phosphorus 2.4 L (2.5-4.5) mg/dL Magnesium 1.5 L (1.6-2.3) mg/dL Total Bilirubin 1.4 H (0.2-1.3) mg/dL AST 40 H (14-36) U/L ALT 51 H (4-34) U/L Alkaline Phosphatase 99 (38-126) U/L Total Protein 7.3 (6.3-8.2) g/dL Albumin 4.3 (3.5-5.0) g/dL Lipase 69 (23-300) U/L Influenza Type A (PCR) Not Detected (Not Detectd) Influenza Type B (PCR) Not Detected (Not Detectd) RSV (PCR) Not Detected (Not Detectd) SARS-CoV-2 (PCR) Not Detected (Not Detectd) 03/30/24 Range/Units 20:48 WBC (3.8-10.6) k/uL RBC (3.80-5.40) m/uL Hgb (11.4-16.0) gm/dL Hct (34.0-46.0) % MCV (80.0-100.0) fL MCH (25.0-35.0) pg MCHC (31.0-37.0) g/dL RDW (11.5-15.5) % Plt Count (150-450) k/uL MPV Neutrophils % % Lymphocytes % % Monocytes % % Eosinophils % % Basophils % % Neutrophils # (1.3-7.7) k/uL Lymphocytes # (1.0-4.8) k/uL Monocytes # (0-1.0) k/uL Eosinophils # (0-0.7) k/uL Basophils # (0-0.2) k/uL Anisocytosis Sodium (137-145) mmol/L Potassium (3.5-5.1) mmol/L Chloride (98-107) mmol/L Carbon Dioxide (22-30) mmol/L Anion Gap mmol/L BUN (7-17) mg/dL Creatinine (0.52-1.04) mg/dL Est GFR (CKD-EPI)AfAm (>60 ml/min/1.73 sqM) Est GFR (CKD-EPI)NonAf (>60 ml/min/1.73 sqM) Glucose (74-99) mg/dL Plasma Lactic Acid Wilman 1.2 (0.7-2.0) mmol/L Calcium (8.4-10.2) mg/dL Phosphorus (2.5-4.5) mg/dL Magnesium (1.6-2.3) mg/dL Total Bilirubin (0.2-1.3) mg/dL AST (14-36) U/L ALT (4-34) U/L Alkaline Phosphatase (38-126) U/L Total Protein (6.3-8.2) g/dL Albumin (3.5-5.0) g/dL Lipase (23-300) U/L Influenza Type A (PCR) (Not Detectd) Influenza Type B (PCR) (Not Detectd) RSV (PCR) (Not Detectd) SARS-CoV-2 (PCR) (Not Detectd) - Radiology Data Radiology results: report reviewed (CT abdomen pelvis does show developing soft tissue fluid collection), image reviewed Disposition Clinical Impression: Abscess, Fever, Abdominal wall abscess Disposition: HOME SELF-CARE Condition: Good Instructions (If sedation given, give patient instructions): Abscess Incision and Drainage (ED), Abscess (ED) Prescriptions: clindamycin HCL [Cleocin] 300 mg PO Q6HR #28 cap Is patient prescribed a controlled substance at d/c from ED?: No Referrals: Michael Cavazos DO [Primary Care Provider] - 1-2 days Time of Disposition: 22:10
[2024-03-30] MEDS: ACETAMINOPHEN TAB 500 MG TAB PO STA (20:31)
[2024-03-30] MEDS: IBUPROFEN 600 MG TAB PO STA (20:32)
[2024-03-30] MEDS: SODIUM CHLORIDE 0.9% 1,000 ML IV STA (20:34)
[2024-03-30 21:10] LABS: ALT 51 U/L (4-34); AST 40 U/L (14-36); African American GFR (CKD) >90 (>60 ml/min/1.73 sqM); Albumin 4.3 g/dL (3.5-5.0); Alkaline Phosphatase 99 U/L (38-126); Anion Gap 10 mmol/L; Blood Urea Nitrogen 9 mg/dL (7-17); Calcium 9.2 mg/dL (8.4-10.2); Carbon Dioxide 25 mmol/L (22-30); Chloride 100 mmol/L (98-107); Glucose 136 mg/dL (74-99); Lipase 69 U/L (23-300); Magnesium 1.5 mg/dL (1.6-2.3); Non-African American GFR(CKD) >90 (>60 ml/min/1.73 sqM); Phosphorus 2.4 mg/dL (2.5-4.5); Potassium 3.5 mmol/L (3.5-5.1); Sodium 135 mmol/L (137-145); Total Bilirubin 1.4 mg/dL (0.2-1.3); Total Protein 7.3 g/dL (6.3-8.2)
--- NOTE | 2024-03-30 21:24 | XR ---
EXAMINATION TYPE: XR chest 2V DATE OF EXAM: 03/30/2024 9:01 PM CLINICAL INDICATION: Female, 48 years old with history of fever; [facility] COMPARISON: Chest radiographs from 12/25/2023 TECHNIQUE: XR chest 2V Frontal view of the chest. FINDINGS: Lungs/Pleura: There is no evidence of pleural effusion, focal consolidation, or pneumothorax. Pulmonary vascularity: Unremarkable. Heart/mediastinum: Cardiomediastinal silhouette is unremarkable. Musculoskeletal: No acute osseous pathology. Other findings: None Lines/Tubes: [id number] projecting over the right hemithorax with distal tip projecting over the superior vena cava. IMPRESSION: No acute cardiopulmonary disease/process. [facility], , 03/30/2024 9:21 PM
[2024-03-30 21:25] LABS: Anisocytosis Slight; Basophils % (A) 0 %; Eosinophils % (A) 0 %; HCT 33.8 % (34.0-46.0); HGB 11.5 gm/dL (11.4-16.0); Lymphocytes # (A) 1.1 k/uL (1.0-4.8); Lymphocytes % (A) 24 %; MCH 27.5 pg (25.0-35.0); MCHC 33.9 g/dL (31.0-37.0); MCV 81.2 fL (80.0-100.0); Mean Platelet Volume 8.2; Monocytes # (A) 0.2 k/uL (0-1.0); Monocytes % (A) 3 %; Neutrophils # (A) 3.1 k/uL (1.3-7.7); Neutrophils % (A) 69 %; Platelet Count 109 k/uL (150-450); RBC 4.16 m/uL (3.80-5.40); WBC 4.5 k/uL (3.8-10.6)
[2024-03-30 21:27] VITALS: BP 113/75; PULSE 98; RESP 20
--- NOTE | 2024-03-30 21:39 | CT ---
EXAMINATION TYPE: CT abdomen pelvis wo con CT DLP: 1158.4 mGycm, Automated exposure control for dose reduction was used. DATE OF EXAM: 03/30/2024 9:10 PM COMPARISON: 07/22/2023, 08/21/2023 CLINICAL INDICATION: Female, 48 years old with history of abscess; pt has hx of colon cancer, undergo ing chemo open abdominal wound, fever TECHNIQUE: Axial CT abdomen pelvis wo con;Sagittal and coronal reformats were created on a separate workstation. Contrast used: mL of , (none if empty) Oral contrast used: without Oral Contrast (none if empty) FINDINGS: LOWER CHEST: Unremarkable ABDOMEN LIVER: Diffusely hypoattenuating parenchyma. GALLBLADDER AND BILE DUCTS: The gallbladder is surgically absent. PANCREAS: Unremarkable. SPLEEN: Probable cyst versus hemangioma measuring up to 45 mm. ADRENAL GLANDS: Unremarkable. KIDNEYS AND URETERS: No evidence of hydronephrosis or renal calculus. The ureters are unremarkable. PELVIS BLADDER: Unremarkable REPRODUCTIVE: Unremarkable. ABDOMEN & PELVIS STOMACH AND BOWEL: No evidence of bowel obstruction. Surgical margin sigmoid colon since prior PET CT there is a nodule adjacent to this series 201 image 82 measuring 9 mm. PERITONEUM/RETROPERITONEUM: No evidence of pneumoperitoneum or free fluid. VASCULATURE: No evidence of aortic aneurysm. MUSCULOSKELETAL: No acute osseous abnormalities LYMPH NODES: No gross evidence for lymphadenopathy. SOFT TISSUE/ABDOMINAL WALL: No gross change in fat stranding changes along the left lower abdomen abd ominal wall with focal thinning thickening. IMPRESSION: 1. Left lower abdominal wall phlegmonous change and skin thickening without organizing fluid collect ion. Correlate for cellulitis. 2. Soft tissue nodule adjacent to the surgical margin. Attention follow-up PET/CT. 3. Splenic lesion is not significantly changed in size from prior. [facility], , 03/30/2024 9:37 PM
[2024-03-30] MEDS: CLINDAMYCIN 600 MG in DEXTROSE 5% IN WATER 50 ML IVPB STA (22:27)
[2024-03-30] MEDS: CLINDAMYCIN 150 MG CAP PO STA (22:33)
== END 2024-03-30 22:38 | disposition home or self-care (01) ==
LOC: EC 18:39
CPT/HCPCS: 10060; 36415; 71046; 74176; 80053; 83605; 83690; 83735; 84100; 85025; 87040; 87636; 96360; 99284

== ENCOUNTER → 2024-09-06 | Outpatient (CLI) | payer MEDICARE, OTHER ==
[2024-09-06 15:06] LABS: BUN/Creat Ratio 15.14 Ratio (12.00-20.00); Blood Urea Nitrogen 10.6 mg/dL (9.0-27.0); Chloride 106 mmol/L (96-109); Glucose 152 mg/dL (70-110); Potassium 3.9 mmol/L (3.5-5.5); Sodium 141 mmol/L (135-145)
[2024-09-06 15:07] LABS: ALT 27 U/L (8-44); AST 23 U/L (13-35); Albumin 4.6 g/dL (3.8-4.9); Albumin/Globulin Ratio 1.92 Ratio (1.60-3.17); Alkaline Phosphatase 121 U/L (41-126); Calcium 9.4 mg/dL (8.7-10.3); Globulin 2.4 g/dL (1.6-3.3); Total Bilirubin 0.3 mg/dL (0.3-1.2)
== END | disposition home or self-care (01) ==
LOC: LABWHC1 10:30
PROVIDERS: ATTEND Nurse Practitioner Family
DX: Z51.81 Encounter for therapeutic drug level monitoring (principal); Z79.899 Other long term (current) drug therapy
CPT/HCPCS: 36415; 80053